=== PATIENT | female | born 1970 | race Native Hawaiian/Other Pacific Islander ===

== ENCOUNTER → 2021-10-21 13:52 | Outpatient (BNVA) | payer OTHER, SELFPAY | PROVIDERS: PCP Internal Medicine; Visit Provider Nurse Practitioner Family | DX: G43.009 Migraine without aura, not intractable, without status migrainosus (principal); G47.00 Insomnia, unspecified | CPT/HCPCS: 99212 ==

== ENCOUNTER → 2022-01-15 12:42 | Outpatient (BNVA) | payer OTHER, SELFPAY | PROVIDERS: PCP Internal Medicine; Visit Provider Nurse Practitioner Family | DX: G43.009 Migraine without aura, not intractable, without status migrainosus (principal); G47.00 Insomnia, unspecified; F11.21 Opioid dependence, in remission | CPT/HCPCS: 99212 ==

== ENCOUNTER 2022-12-10 12:52 | Outpatient (AMB) | payer MEDICARE, SELFPAY ==
[2022-12-10 13:00] VITALS: BP 130/78; PULSE 92; O2SAT 99; BMI 31.6
--- NOTE | 2022-12-10 13:00 | MHC.OFFVIS ---
Intake Vital Signs 12/10/22 13:00 Height 5 ft 8 in Weight 208 lb BMI 31.6 BP 130/78 Blood Pressure Location Rt brachial Pulse 92 Pulse Source Pulse Oximeter Pulse Oximetry (%) 99 Oxygen Delivery Method Room Air Intake Visit Reasons: follow up - LVM Intake Note: Patient presents for follow up. Patient states no issues or concerns. Allergies No Known Allergies [NKA] Allergy (Mild, Verified 12/10/22 13:02) NA Medication List - Last Reconciled 12/10/22 by DARWIN Rea amitriptyline 25 mg PO BEDTIME 30 days aspirin 81 mg PO DAILY celecoxib (Celebrex) 200 mg PO DAILY cetirizine 10 mg PO DAILY cyanocobalamin (vitamin B-12) 100 mcg PO DAILY dicyclomine 20 mg PO QID escitalopram oxalate 5 mg PO DAILY ferrous gluconate 324 mg PO DAILY gabapentin 300 mg PO BID PRN ibuprofen 800 mg PO Q8H PRN ipratropium bromide 2 sprays intranasal montelukast 10 mg PO DAILY rizatriptan 5 - 10 mg (0.5 - 1 x 10 mg) PO Q2H PRN 21 days sennosides (senna) 8.6 - 17.2 mg PO BEDTIME PRN simvastatin 20 mg PO BEDTIME tamoxifen 20 mg PO DAILY topiramate One tab q.a.m. and 2 tabs q.h.s. PO; 30 days trazodone 100 mg PO BEDTIME ubrogepant (Ubrelvy) 50 - 100 mg (0.5 - 1 x 100 mg) PO ONCE PRN 30 days valacyclovir 500 mg PO DAILY zolpidem 10 mg PO BEDTIME PRN HPI HPI Comments History of Present Illness Details 52-yr-old female presents for f/u visit. Pt reports she has been having chronic nasal/sinus congestion r/t nasal polyps. She also reports she has started having areas of small to large reddish/purplish blisters on her legs and elsewhere on her body that come w/o trigger/injury. The lesions may itch, but are not painful. As the blister/raised area resolves, they leave indurated reddish/purple patches. This was recently evaluated in [facility] 11/09/22- bedside US did not show any fluid collection. CBC, CMP- NL. She was referred to [facility]- has appt in Apr. She states she has had recent tx of Prednisone taper and doxycycline (for the nasal polyp s/s and the skin lesions)- but these were not helpful. Pt reports she is rarely having a migraine headache. She has needed to use the Ubrelvy only a few times in the past year, and has found it to be helpful. [facility] Medical History (Updated 12/10/22 @ 14:12 by DARWIN Rea) COVID-19 virus infection Hypercholesteremia Opioid dependence in remission GERD (gastroesophageal reflux disease) Breast CA Asthma Anxiety Surgical History H/O tubal ligation Hx of bilateral breast reduction surgery History of back surgery Family History Mother DM (diabetes mellitus) HTN (hypertension) Hyperlipidemia Social History Alcohol intake: current Alcohol intake frequency: holidays/special occasions only Patient Tobacco Use Status: Former Tobacco user Quit Date: 2016 Review of Systems Const All systems reviewed & are unremarkable except as noted in HPI and below Physical Exam Vital Signs: Last Vital Signs Pulse 92 12/10/22 13:00 BP 130/78 12/10/22 13:00 Pulse Ox 99 12/10/22 13:00 Oxygen Delivery Method Room Air 12/10/22 13:00 BMI result Body Mass Index 31.6 Const General: cooperative and no acute distress Orientation/consciousness: patient oriented x3 HEENT Other: Mild audible sinus congestion Head: Yes normocephalic Resp Effort & Inspection: normal respiratory effort and able to speak in complete sentences Skin Other: Few areas of reddish/purplish raised, firm on BLE. On anterior right stewart- large area 10 x 8 cm area of patchy reddish/purplish raised, firm w/ peripheral erythema andwarmth with 1 large intact reddish blister approx 3 x 2.5 cm. Neuro General: patient oriented x3, gait normal and CN's II-XI intact bilaterally Cognition (Neuro): normal cognition Motor exam (neuro): 5/5 motor strength present throughout Psych Appearance: grossly normal Mental Status: mental status grossly normal Speech and movement: Normal speech and movement present Affect: normal affect Attitude: cooperative Thought process: Normal thought process present Thought content: Normal thought content present Insight: Good insight present (Psych) Judgement: Good judgement present (Psych) Assessment & Plan Assessment & Plan (1) Blood blister: Code(s): T14.8XXA - Other injury of unspecified body region, initial encounter (2) Skin lesion: Code(s): L98.9 - Disorder of the skin and subcutaneous tissue, unspecified (3) Migraine without aura: Code(s): G43.009 - Migraine without aura, not intractable, without status migrainosus (4) Insomnia: Code(s): G47.00 - Insomnia, unspecified Plan For skin lesions: Pt advised to not pop the RLE blister and to seek meidcal care if it does open. I will request wound clinic and dermatology consult- in hopes pt can be seen sooner than Apr. Continue Topiramate 50 mg at AM and 100 mg at HS. Continue Amitriptyline 25 mg at HS. Continue Ambien for sleep. Continue Ubrogepant 50-100mg prn at onset of migraine, may repeat in 2 hrs. May adjunct w/ Rizatriptan. May continue Rizatriptan as needed. Previous acute medications trilas- Sumatriptan- ineffective. Rizatripatn- not full effective Orders: Referrals Wound Care Referral L98.9 - Disorder of the skin and subcutaneous tissue, unspecified, T14.8XXA - Other injury of unspecified body region, initial encounter Dermatology Referral L98.9 - Disorder of the skin and subcutaneous tissue, unspecified, T14.8XXA - Other injury of unspecified body region, initial encounter Medications: Refilled ubrogepant (Ubrelvy) take at onset of migraine, may repeat in 2hrs (may take w/ Rizatriptan) 50 - 100 mg (0.5 - 1 x 100 mg) PO ONCE PRN 16 tabs 6RF migraine headache 30 days rizatriptan at onset of headache, may repeat in 2 hrs (max 2 tabs per day or 4 tabs per week) 5 - 10 mg (0.5 - 1 x 10 mg) PO Q2H PRN 12 tabs 4RF migraine headache 21 days Coding Level of Care Code Est Pt Level 4 (56852) Diagnoses Blood blister T14.8XXA Skin lesion L98.9 Migraine without aura G43.009 Insomnia G47.00
== END 2022-12-10 13:35 | disposition home or self-care (01) ==
PROVIDERS: PCP Internal Medicine; Visit Provider Nurse Practitioner Family
DX: G43.009 Migraine without aura, not intractable, without status migrainosus (principal); G47.00 Insomnia, unspecified; T14.8XXA Other injury of unspecified body region, initial encounter; L98.9 Disorder of the skin and subcutaneous tissue, unspecified
CPT/HCPCS: 99214

== ENCOUNTER → 2022-12-10 12:52 | Outpatient (BNVA) | payer MEDICARE, SELFPAY | PROVIDERS: PCP Internal Medicine; Visit Provider Nurse Practitioner Family | DX: L98.9 Disorder of the skin and subcutaneous tissue, unspecified (principal); G43.009 Migraine without aura, not intractable, without status migrainosus; G47.00 Insomnia, unspecified; T14.8XXA Other injury of unspecified body region, initial encounter | CPT/HCPCS: 99212 ==

== ENCOUNTER 2024-03-08 10:12 | Outpatient (AMB) | payer OTHER, SELFPAY ==
--- NOTE | 2024-03-08 10:13 | MHC.OFFVIS ---
Vital Signs 03/08/24 10:15 Height 5 ft 7 in Weight 239 lb BMI 37.4 Intake Visit Reasons: Follow Up Intake Note: Patient presents for follow up Allergies No Known Allergies [NKA] Allergy (Mild, Verified 03/08/24 10:16) NA Medication List - Last Reconciled 03/08/24 by DARWIN Rea amitriptyline 25 mg PO BEDTIME 30 days aspirin 81 mg PO DAILY celecoxib (Celebrex) 200 mg PO DAILY cetirizine 10 mg PO DAILY cyanocobalamin (vitamin B-12) 100 mcg PO DAILY dicyclomine 20 mg PO QID escitalopram oxalate 5 mg PO DAILY ferrous gluconate 324 mg PO DAILY gabapentin 300 mg PO BID PRN ibuprofen 800 mg PO Q8H PRN 30 days ipratropium bromide 2 sprays intranasal montelukast 10 mg PO DAILY rizatriptan 5 - 10 mg (0.5 - 1 x 10 mg) PO Q2H PRN 21 days sennosides (senna) 8.6 - 17.2 mg PO BEDTIME PRN simvastatin 20 mg PO BEDTIME tamoxifen 20 mg PO DAILY topiramate One tab q.a.m. and 2 tabs q.h.s. 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 She is f/b Dr Guillory at [facility]. Since, she has completed chemotherapy (did not require stem cell transplant or radiation tx). During her chemotherapy, patient did have ?ifosfamide mediated cardiotoxicity with SMILE, decreased ejection fraction- thought to be d/t Ifosfamide. Was stasrted on carvedilol, losartan for chemo related cardiotoxicity with drop in her EF.? Her tamoxifen was held during her chemotherapy treatments, however she has resumed tamoxifen again. She had mid January 2024 [facility] admission for abdominal pain, which was initially thought to be pancreatitis, as Abd CT showed mildly edematous pancreatic head without any surrounding peripancreatic fluid collection, abscess or inflammatory fat stranding. Prominent common bile duct with distal tapering. Hepatic steatosis. However lab work was not consistent with pancreatitis. Patient was discharged home, with encouragement to follow up with PCP, optimize a healthy low-fat diet, and encouraged to decrease alcohol consumption. She has been having decreased energy throughout her chemotherapy treatment, and this does persist some. Most recent PET scans do not show evidence of cancer- she will continue to be followed closely w/ skin checks, blood work, PeTscans. She is scheduled for a follow-up chest CT to monitor a left upper lobe pulmonary nodule. While undergoing chemotherapy, she has had a weight gain and then started having ?tendinopathy of the left shoulder?and christiano knee pain. She recently had bilateral knee injections, which was very helpful. She is awaiting left shoulder injection. Pt reports she is having an occasional migraine headache- sometimes can go months between attacks. Last week, she had a week of waking up with a migraine- this happens about once a year. She states the Ubrelvy is not helpful. Finds Ibuprofen 800mg is more effective. She has needed to use the Ubrelvy only a few times in the past year, and has found it to be helpful. Migraine characteristics: starts as either right or left temporal then becomes bilateral temporal pounding/hammering pain a/w photophobia, phonophobia, nausea, anorexia, orthostatic lightheadedness, brain fog, activity intolerance. Typical duration w/o Tx- all day. PFSH Medical History (Updated 03/08/24 @ 12:08 by DARWIN Rea) COVID-19 virus infection Hypercholesteremia Opioid dependence in remission GERD (gastroesophageal reflux disease) Breast CA Asthma Anxiety Surgical History (Updated 03/08/24 @ 10:18 by CHALO Franco) Hx laparoscopic cholecystectomy H/O tubal ligation Hx of bilateral breast reduction surgery History of back surgery Family History Mother DM (diabetes mellitus) HTN (hypertension) Hyperlipidemia Social History Alcohol intake: current Alcohol intake frequency: holidays/special occasions only Patient Tobacco Use Status: Former Tobacco user Physical Exam Vital Signs: BMI result Body Mass Index 37.4 Const General: cooperative and no acute distress Orientation/consciousness: patient oriented x3 HEENT Head: Yes normocephalic Resp Effort & Inspection: normal respiratory effort and able to speak in complete sentences Neuro General: patient oriented x3, gait normal and CN's II-XI intact bilaterally Cognition (Neuro): normal cognition Motor exam (neuro): 5/5 motor strength present throughout Psych Appearance: grossly normal Mental Status: mental status grossly normal Speech and movement: Normal speech and movement present Affect: normal affect Attitude: cooperative Thought process: Normal thought process present Thought content: Normal thought content present Insight: Good insight present (Psych) Judgement: Good judgement present (Psych) Assessment & Plan Assessment & Plan (1) Migraine without aura: Code(s): G43.009 - Migraine without aura, not intractable, without status migrainosus Category: Medical (2) Insomnia: Code(s): G47.00 - Insomnia, unspecified Category: Medical Plan For migraine and sleep: Continue Topiramate 50 mg at AM and 100 mg at HS. Continue Amitriptyline 25 mg at HS. Continue Ambien 10 mg q.h.s. for sleep- managed by PCP. Continue trazodone 100 mg q.h.s.. Hold Ubrogepant 50-100mg prn- patient states ineffective May continue ibuprofen 800 mg p.o. t.i.d. p.r.n. May continue Rizatriptan as needed. Previous acute medications trials- Sumatriptan- ineffective. Rizatripatn- not full effective. Ubrelvy-ineffective. Medications: New ibuprofen 800 mg PO Q8H 30 days PRN 180 tabs 1RF pain Coding Level of Care Code Est Pt Level 4 (43626) Diagnoses Migraine without aura G43.009 Insomnia G47.00
[2024-03-08 10:15] VITALS: BMI 37.4
--- OUTSIDE RECORDS SUMMARY | 2024-03-08 10:15 | XMS_ITS | Continuity of Care Document ---
Author Organization [facility] Address [address] [place] [address]- Care Team Providers Care Hybrid Car Mechanic Name Role Phone Junior BERGERON, Justin Olivier Primary Care Physician [phone] [place] [facility] [place]/18[place]24 - 02/17/24 [facility] [address] [place], [place] [address] Encounter Type: Triage Allergies, Adverse Reactions, Alerts Substance Criticality Severity Reaction Reaction Severity Status Other Environmental Allergy seasonal allergies Active Immunizations Given and Recorded Vaccine Date Status Refusal Reason influenza virus vaccine, inactivated 01/29/23 Give n influenza virus vaccine, inactivated 02/10/22 Give n tetanus-diphtheria toxoids (Td) 06/22/22 Given tetanus-diphtheria toxoids (Td) 05/14/97 Given pneumococcal 23-valent vaccine 10/07/09 Given Influenza Vaccine (oldterm) 11/14/98 Given Problem List Condition Confirmation Course Effective Dates Status H ealth Status Informant Acute lower UTI Confirmed Active Asthma 1 Confirmed Active Bipolar disorder Confirmed Active Body mass index 30+ - obesity Confirmed Active Breast cyst, solitary, right at 12:30, 5 CFN oil cyst Confirmed 09/05/10 Active Breast mass, right breast Confirmed 08/15/10 Active CHRIS II (cervical intraepithelial neoplasia II) 2 Confirmed 04/24/08 Active Degeneration of lumbar intervertebral disc Confirmed Active Depression Confirmed Active Dyslipidemia Confirmed Active GERD (gastroesophageal reflux disease) Confirmed Active Heart murmur Confirmed Active History of herpes genitalis Confirmed Active Ductal carcinoma in situ (DCIS) of left breast Confirmed 03/2021 Active Knee pain Confirmed Active Breast cancer Confirmed Active Migraine Confirmed Active Admission for chemotherapy Confirmed Active Severe obesity (BMI 35.0-39.9) with comorbidity Confirmed Active Polysubstance use disorder Confirmed Active NK/T-cell lymphoma Confirmed Active Tobacco user Confirmed Active 1mild intermittent 2pap LSIL, CHRIS II on colpo biopsy, cone biopsy 06/22 Social History Social History Type Response Smoking Status 10 or more cigarette s (1/2 pack or more)/day in last 30 days; Interested in cessation: No; Patient wants NRT during admission No entered on: 10/19/23 Sex Sex Representation Female (finding) Patient Care team information Care Team Personnel Name: Pilar Donovan RN Position: [facility] RN Member Role: Primary Care Nurse Name: Lita Wilson Position: [facility] Outreach Member Role: Lifetime Consulting Physician Address: [address] [place] [address] [place] - Telecom: Name: Keena Cruz RN Position: [facility] RN Member Role: Primary Care Nurse Name: Evelia Joya RN Position: [facility] RN Member Role: Primary Care Nurse Name: Catalina Fong RN Position: [facility] RN Member Role: Primary Care Nurse Name: Zoe Yepez RN Position: [facility] RN Member Role: Primary Care Nurse Name: Efren Boateng RN Position: [facility] RN Member Role: Primary Care Nurse Name: Vanessa Ladd RN Position: [facility] Onco RN Member Role: Primary Care Nurse Name: Justin Pacheco MD Position: [facility] Physician - Primary Care Member Role: PCP Address: [address] [place] [address], [address] Primary Care [place] [address]- Telecom: Name: Tommy Segovia RN Position: [facility] RN Member Role: Primary Care Nurse Name: Rosa Salazar RN Position: [facility] RN Member Role: Primary Care Nurse Name: Renita Alberts RN Position: [facility] Onco RN Member Role: Primary Care Nurse Name: Nafisa Meyer RN Position: [facility] Onco RN Member Role: Primary Care Nurse Name: Digna Aguilar RN Position: [facility] Onco RN Member Role: Primary Care Nurse Name: Lazara Pineda Position: [facility] Outreach Member Role: Lifetime Consulting Physician Name: Ashli Pinto RN Position: [facility] Onco RN Member Role: Primary Care Nurse Name: Rufus Lugo RN Position: [facility] RN Member Role: Primary Care Nurse Name: Brian Rodriguez RN Position: [facility] RN Member Role: Primary Care Nurse Name: Jenn Upton RN Position: [facility] RN Member Role: Primary Care Nurse Name: Jasmin Morales RN Position: [facility] RN Member Role: Primary Care Nurse Name: Katelin Belle RN Position: [facility] RN Member Role: Primary Care Nurse Name: Annie Vazquez LPN Position: [facility] RN Member Role: Primary Care Nurse Name: Daysi Bull RN, I Position: [facility] RN Member Role: Primary Care Nurse Care Team Related Persons Name: PERNELL GARVEY Name: MARC LUND Name: KILLIAN GRACIA Name: OMKAR TOSCANO Insurance Providers Guarantor name: [facility] Information #: 1 Payer: [facility] [employer] [employer] Member Number: NA Policy Number: NA Group Number: NA
--- OUTSIDE RECORDS SUMMARY | 2024-03-08 10:15 | XMS_ITS ---
Author Organization [facility] Address [address] [place] [address] Care Team Providers Care Food Equipment Service Technician Name Role Phone ARANAMALLYJEFF Primary Care Provider YOUNG MORALES Unavailable [phone] Giovanni, Kala Unavailable [phone] REASON FOR VISIT x-ray result on disc Encounters Encounter Location Date Provider Diagnosis [address] [facility] [address] [place] [address] 02/09/2024 Kala Davila PLAN OF TREATMENT Next Appt Details Provider Name:Kala Davila, 0 04/13/2024 02:00:00 PM, [address], [address], [place], [address], Progress Notes * MICHELE HERNANDEZ TDOB:1969 (53 yo F)Acc No.[id number]:02/09/2024 Patient:??MICHELE HERNANDEZ :1970?Age:53 Y?Sex:Fe male Address:[address] [facility], [address], [place] [address] * true * Date:??
--- OUTSIDE RECORDS SUMMARY | 2024-03-08 10:15 | XMS_ITS | Continuity of Care Document ---
Author Organization [facility] Address [address] [place] [address]- Care Team Providers Care Aquatic Life Laborer Name Role Phone Justin Pacheco MD Primary Care Physician Encounter [facility] Date(s): 11/30/23 - 02/09/24 [facility] [address] [place], [place] [address] Discharge Disposition: A-D/C Home Attending Physician: Daya Guillory MD Admitting Physician: Daya Guillory MD Referring Physician: Justin Pacheco MD Encounter Type: Disch Recurring OP Allergies, Adverse Reactions, Alerts Substance Criticality Severity [...] II on colpo biopsy, cone biopsy 06/22 Vital Signs Most recent to oldest [Reference Range]: 1 2 3 Height 170 cm (02/08/24 1:19 PM) 171 cm (01/19/24 2:12 PM) 171 cm (01/12/24 3:00 PM) Weight 106.0 kg (02/08/24: PM) 104.1 kg (01/12/24 3:00 PM) Oxygen Saturation [94-100 %] 99 % (02/08/24: PM) 98 % (01/12/24 3:00 PM) 99 % (01/05/24 10:59 AM) Pulse Rate [55-90 bpm] 98 bpm *H* (02/08/24: PM) 85 bpm (01/12/24 3:00 PM) 86 bpm (01/05/24 10:59 AM) Body Mass Index [18.5-24.99 kg/m2] 36.68 kg/m2 *>HHI* (02/08/24 1: PM) 35.6 kg/m2 *>HHI* (01/12/24 3:00 PM) Blood Pressure [90-138/55-84 mm Hg] 109/68mm Hg (02/08/24: PM) 106/75mm Hg (01/12/24 3:00 PM) 106/63mm Hg (01/05/24 10:59 AM) Temperature [96.8-100.4 DegF] 97.6 DegF (02/08/24: PM) 98.6 DegF (01/12/24 3:00 PM) 97.8 DegF (01/05/24 10:59 AM) Mode of Delivery (Oxygen) Room air (02/08/24 1:19 PM) Room air (01/12/24 3:00 PM) Room air (01/05/24 10:59 AM) Blood pressure sites Arm, right (02/08/24 1:19 PM) Arm, right (01/12/24 3:00 PM) Arm, right (01/05/24 10:59 AM) Temperature Route Oral (02/08/24 1:19 PM) Oral (01/19/24 2:12 PM) Oral (01/12/24 3:00 PM) Dry Weight 106.0 kg (02/08/24 1:19 PM) 104.1 kg (01/12/24 3:00 PM) Weight Obtained Via Standing scale (02/08/24 1:19 PM) Standing scale (01/12/24 3:00 PM) Standing scale (12/02/23 10:30 AM) Dry Weight Obtained Via Standing scale (02/08/24 1:19 PM) Standing scale (01/12/24 3:00 PM) Standing scale (12/02/23 10:30 AM) Social History Social History Type Response Smoking Status 10 or more cigarette s (1/2 pack or more)/day in last 30 days; Interested in cessation: No; Patient wants NRT during admission No entered on: 10/19/23 Sex Sex Representation Female (finding) Patient Care team information Care Team Personnel Name: Pilar Donovan RN Position: [facility] RN Member Role: Primary Care Nurse Name: Lita Wilson Position: [facility] Outreach Member Role: Lifetime Consulting Physician Address: [address] [place] [address] Personal Primary Care & Weight Managment [address] [place], [place] [address] Telecom: Name: Keena Cruz RN Position: [facility] RN Member Role: Primary Care Nurse Name: Evelia Joya RN Position: [facility] RN Member Role: Primary Care Nurse Name: Catalina Fong RN Position: [facility] RN Member Role: Primary Care Nurse Name: Zoe Yepez RN Position: [facility] RN Member Role: Primary Care Nurse Name: Efren Boateng RN Position: [facility] RN Member Role: Primary Care Nurse Name: Vanessa Ladd RN Position: [facility] Onco RN Member Role: Primary Care Nurse Name: Justin Pacheco MD Position: [facility] Physician - Primary Care Member Role: PCP Address: [address] [place] [address], [address] Primary [place] [address]- Telecom: Name: Tommy Segovia RN Position: [facility] RN Member Role: Primary Care Nurse Name: Rosa Salazar RN Position: [facility] RN Member Role: Primary Care Nurse Name: Renita Alberts RN Position: [facility] Onco RN Member Role: Primary Care Nurse Name: Nafisa Meyer RN Position: [facility] Onco RN Member Role: Primary Care Nurse Name: Digna Aguilar RN Position: [facility] Onco RN Member Role: Primary Care Nurse Name: Lazara Pineda Position: [facility] Outreach Member Role: Lifetime Consulting Physician Name: Ashli Pinto RN Position: [facility] Onco RN Member Role: Primary Care Nurse Name: Rufus Lugo RN Position: [facility] RN Member Role: Primary Care Nurse Name: Brian Rodriguez RN Position: [facility] RN Member Role: Primary Care Nurse Name: Jenn Upton RN Position: [facility] RN Member Role: Primary Care Nurse Name: Jasmin Mroales RN Position: [facility] RN Member Role: Primary Care Nurse Name: Katelin Belle RN Position: [facility] RN Member Role: Primary Care Nurse Name: Annie Vazquez LPN Position: [facility] RN Member Role: Primary Care Nurse Name: Daysi Bull RN, I Position: [facility] RN Member Role: Primary Care Nurse Care Team Related Persons Name: PERNELL GARVEY Name: MARC LUND Name: KILLIAN GRACIA Name: OMKAR TOSCANO Insurance Providers Guarantor name: [facility] Health Plan Information #: 1 Payer: [employer] Member Number: [id number] Policy Number: NA Group Number: [facility] Health Plan Information #: 2 Payer: [employer] Member Number: [id number] Policy Number: NA Group Number: NA
--- OUTSIDE RECORDS SUMMARY | 2024-03-08 10:15 | XMS_ITS | Continuity of Care Document ---
Author Organization [facility] Address [address] [place] [address]- Care Team Providers Care Filter Machine Operator Name Role Phone Junior BERGERON, Justin Olivier Primary Care Physician [phone] Encounter [facility] Date(s): 01/18/24 - 02/17/24 [facility] [address], [place] [address] Encounter Type: Triage Allergies, Adverse Reactions, Alerts [...] Team Personnel Name: Pilar Donovan RN Position: [facility] RN Member Role: Primary Care Nurse Name: Lita Wilson Position: [facility] Outreach Member Role: Lifetime Consulting Physician Address: [address] [place] [address] [place] - Telecom: Name: Keena Cruz RN Position: [facility] RN Member Role: Primary Care Nurse Name: Evelia Joya RN Position: [facility] RN Member Role: Primary Care Nurse Name: Catalina Fong RN Position: [facility] RN Member Role: Primary Care Nurse Name: Zoe Yepez RN Position: [facility] RN Member Role: Primary Care Nurse Name: Efren Boateng RN Position: [facility] RN Member Role: Primary Care Nurse Name: Vanessa Ladd RN Position: [facility] Onco RN Member Role: Primary Care Nurse Name: Justin Pacheco MD Position: [facility] Physician - Primary Care Member Role: PCP Address: [address] [place] [address], [address] Primary [place] [address]- Telecom: Name: Tommy Segovia RN Position: [facility] RN Member Role: Primary Care Nurse Name: Rosa Salazar RN Position: [facility] RN Member Role: Primary Care Nurse Name: Renita Alberts RN Position: [facility] Onco RN Member Role: Primary Care Nurse Name: Nafisa Meyer RN Position: [facility] Onco RN Member Role: Primary Care Nurse Name: Digna Aguilar RN Position: [facility] Onco RN Member Role: Primary Care Nurse Name: Lazara Pindea Position: [facility] Outreach Member Role: Lifetime Consulting Physician Name: Ashli Pinto RN Position: [facility] Onco RN Member Role: Primary Care Nurse Name: Rufus Lugo RN Position: [facility] RN Member Role: Primary Care Nurse Name: Brian Rodriguez RN Position: [facility] RN Member Role: Primary Care Nurse Name: Jenn Upton RN Position: [facility] RN Member Role: Primary Care Nurse Name: Jasmin Morales RN Position: [facility] RN Member Role: Primary Care Nurse Name: Katelin Belle RN Position: [facility] RN Member Role: Primary Care Nurse Name: Annie Vazquez LPN Position: [facility] RN Member Role: Primary Care Nurse Name: Daysi Bull RN, I Position: [facility] RN Member Role: Primary Care Nurse Care Team Related Persons Name: PERNELL GARVEY Name: MARC LUND Name: KILLIAN GRACIA Name: OMKAR TOSCANO Insurance Providers Guarantor name: [facility] Information #: 1 Payer: [facility] C[employer]/ONE CARE Member Number: NA Policy Number: NA Group Number: NA
--- OUTSIDE RECORDS SUMMARY | 2024-03-08 10:15 | XMS_ITS ---
Author Organization [facility] Address [address] [place] [address] Care Team Providers Care Allergy Nurse Name Role Phone PACHECO, MALLYJEFF Primary Care Provider YOUNG MORALES Unavailable [phone] Kala Davila Unavailable [phone] REASON FOR REFERRAL Reason NEOS; left shoulder pain Diagnosis 1 Left shoulder pain, unspecified chronicity (M25.512) Referral Organization [facility] 119 Referring Provider First Name Kala [facility] Referring Provider Speciality Internal M edicine Referred Provider Specialty Orthopedic S urgery General Notes [address] Tisha [address] [facility] , (p) [phone], (f) [phone] Clinical Notes Bev Alford 02:34:48 PM > referral faxed Referral Priority Routine REASON FOR VISIT Pt here for follow up. Pt has no concerns. MEDICATIONS Medication SIG (Take, Route, Frequency, Duration) Notes Start Date End Date Status Ambien 10 MG 1 tablet at bedtime as needed Orally Once a day Active Gabapentin 300 MG TAKE 1 CAPSULE BY MOUTH THREE TIMES DAILY for 90 Active Dicyclomine HCl 20 mg TAKE ONE TABLET BY MOUTH FOUR TIMES DAILY @ [id number] for 90 Active predniSONE 20 MG 2 tablets Orally Onc e a day for 5 days 02/04/2024 Active Escitalopram Oxalate 10 MG TAKE 1 TABLET BY MOUTH EVERY DAY for 90 Unknown Zolpidem Tartrate 10 MG TAKE 1 TABLET BY MOUTH EVERY NIGHT AT BEDTIME NEEDED for 90 12/21/2023 Active Vitamin B12 100 MCG TAKE 1 TABLET BY BRYSON TH EVERY DAY for 90 Active Lactulose 10 GM/15ML 15 ml Orally TID pr n constipation for 10 days 02/13/2022 Active Albuterol Sulfate HFA 108 (90 Base) MCG/ACT 1 puff as needed Inhalation every 4 hrs for 30 days Active Polyethylene Glycol 3350 17 GM/SCOOP MIX 17GR(1 CAPFUL) INTO 8OZ OF WATER AND DRINK TWICE DAILY for 180 Active Ferrous Gluconate 324 (38 Fe) MG TAKE 1 TABLET BY MOUTH TWICE DAILY for 90 Active Topiramate 50 MG 1 tablet Orally Twic e a day for 30 day(s) Active Senna 8.6 MG TAKE 1 TO 2 TABLETS BY MOUTH EVERY NIGHT AT BEDTIME NEEDED for 45 Active Famotidine 20 MG TAKE 1 TABLET BY BRYSON TH TWICE DAILY for 90 Active traZODone HCl 100 MG TAKE 1 TABLET BY [facility] AT BEDTIME for 90 Active Tamoxifen Citrate 20 MG 1 tablet Orally Once a day Active Amitriptyline HCl 25 MG 1 tablet Orally Once a day for 30 day(s) Active Aspirin 81 MG 1 tablet Orally Once a day Active Ferrous Sulfate Acti ve Valtrex 500 MG 1 tablet Orally Once a day Active Sucralfate 1 GM/10ML 10 mL 1 hour before meals and at bedtime on an empty stomach Orally Four times a day Active Atorvastatin Calcium 80 MG 1 tablet Orally Once a day cardiology Active Carvedilol 3.125 MG 1 tablet with food Orally Twice a day cardiology Active Fluconazole 200 MG 1 tablet Orally Active Losartan Potassium 25 MG 1 tablet Orally Once a day cardiology Active Omeprazole 20 MG 1 capsule 30 minutes before morning meal Orally Once a day Active SOCIAL HISTORY Tobacco Use: Social History Observation Description Date Details (start date - stop date) Former Smoker NA - NA Sex Assigned At : Social History Observation Description Sex Assigned At Unknown Tobacco Use/Smoking Question Answer Notes Are you a former smoker Section Notes: Tob: Smoking 3 cigarettes per day (recently started in August 2022) started at the age of 15; quit for 6 years ETOH: Has stopped since the last visit Drugs: Cocacine ( has contiuned with soberity x7 weeks) VITAL SIGNS Heart Rate 95 /min 2024 Blood pressure systolic 116 mm Hg 03/02/20 24 Blood pressure diastolic 82 mm Hg 024 Weight 238 lbs 2024 BMI 38.41 kg/m2 2024 Height 66 in 2024 Oximetry 98 % 2024 Encounters Encounter Location Date Provider Diagnosis [address] [address] 2024 Kala Davila Anxiety disorder, unspecified F41.9 ; Lymphoma, unspecified body region, unspecified lymphoma type C85.90 ; Ductal carcinoma in situ (DCIS) of left breast D05.12 ; NK/T-cell lymphoma, 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 Bone marrow biopsy at [facility] has been put on hold. She was recently treated with antibiotics by Dr. Guillory for possible left lung infection and will need follow-up CAT scan which is scheduled Mar 18. She has follow up with Dr. Guillory next week. #Anxiety and depression. Currently on Lexapro. Mood stable. #DCIS left breast. Status post resection 2021. Currently on tamoxifen. Has hot flashes. #Polysubstance abuse. Reports she has not used cocaine in several months and stopped alcohol since her hospitalization. Discussed at length and strongly encouraged to remain off of alcohol. #Left knee pain. She saw ortho yesterday and had cortisone injection with much improvement of symptoms. #Left shoulder pain. Requesting updated ortho referral for consideration of left shoulder injection. fabio Case discussed with collaborating physician Charline Pacheco who reviewed the assessment and plan. Chart, medications, labs, vital signs reviewed. Dictation was accomplished with the use of [employer] voice recognition software, prone to medical misidentifications and grammatical errors. This is unintentional and the practitioner does try to identify and correct these, but some could still be present. Please do not hesitate to contact practitioner for clarification. All questions answered to patients satisfaction. Patient verbalized understanding of diagnosis and treatments explained. To call sooner prior to next visit it any questions/concerns arise. 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 Bone marrow biopsy at [facility] has been put on hold. She was recently treated with antibiotics by Dr. Guillory for possible left lung infection and will need follow-up CAT scan which is scheduled Mar 18. She has follow up with Dr. Guillory next week. #Anxiety and depression. Currently on Lexapro. Mood stable. #DCIS left breast. Status post resection 2021. Currently on tamoxifen. Has hot flashes. #Polysubstance abuse. Reports she has not used cocaine in several months and stopped alcohol since her hospitalization. Discussed at length and strongly encouraged to remain off of alcohol. #Left knee pain. She saw ortho yesterday and had cortisone injection with much improvement of symptoms. #Left shoulder pain. Requesting updated ortho referral for consideration of left shoulder injection. oulder Case discussed with collaborating physician Charline Pacheco who reviewed the assessment and plan. Chart, medications, labs, vital signs reviewed. Dictation was accomplished with the use of [employer] voice recognition software, prone to medical misidentifications and grammatical errors. This is unintentional and the practitioner does try to identify and correct these, but some could still be present. Please do not hesitate to contact practitioner for clarification. All questions answered to patients satisfaction. Patient verbalized understanding of diagnosis and treatments explained. To call sooner prior to next visit it any questions/concerns arise. 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 Bone marrow biopsy at [facility] has been put on hold. She was recently treated with antibiotics by Dr. Guillory for possible left lung infection and will need follow-up CAT scan which is scheduled Mar 18. She has follow up with Dr. Guillory next week. #Anxiety and depression. Currently on Lexapro. Mood stable. #DCIS left breast. Status post resection 2021. Currently on tamoxifen. Has hot flashes. #Polysubstance abuse. Reports she has not used cocaine in several months and stopped alcohol since her hospitalization. Discussed at length and strongly encouraged to remain off of alcohol. #Left knee pain. She saw ortho yesterday and had cortisone injection with much improvement of symptoms. #Left shoulder pain. Requesting updated ortho referral for consideration of left shoulder injection. chuckyer Case discussed with collaborating physician Charline Pacheco who reviewed the assessment and plan. Chart, medications, labs, vital signs reviewed. Dictation was accomplished with the use of L[employer] voice recognition software, prone to medical misidentifications and grammatical errors. This is unintentional and the practitioner does try to identify and correct these, but some could still be present. Please do not hesitate to contact practitioner for clarification. All questions answered to patients satisfaction. Patient verbalized understanding of diagnosis and treatments explained. To call sooner prior to next visit it any questions/concerns arise. 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 Bone marrow biopsy at [facility] has been put on hold. She was recently treated with antibiotics by Dr. Guillory for possible left lung infection and will need follow-up CAT scan which is scheduled Mar 18. She has follow up with Dr. Guillory next week. #Anxiety and depression. Currently on Lexapro. Mood stable. #DCIS left breast. Status post resection 2021. Currently on tamoxifen. Has hot flashes. #Polysubstance abuse. Reports she has not used cocaine in several months and stopped alcohol since her hospitalization. Discussed at length and strongly encouraged to remain off of alcohol. #Left knee pain. She saw ortho yesterday and had cortisone injection with much improvement of symptoms. #Left shoulder pain. Requesting updated ortho referral for consideration of left shoulder injection. fabio Case discussed with collaborating physician Charline Pacheco who reviewed the assessment and plan. Chart, medications, labs, vital signs reviewed. Dictation was accomplished with the use of L[employer] voice recognition software, prone to medical misidentifications and grammatical errors. This is unintentional and the practitioner does try to identify and correct these, but some could still be present. Please do not hesitate to contact practitioner for clarification. All questions answered to patients satisfaction. Patient verbalized understanding of diagnosis and treatments explained. To call sooner prior to next visit it any questions/concerns arise. 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 Bone marrow biopsy at [facility] has been put on hold. She was recently treated with antibiotics by Dr. Guillory for possible left lung infection and will need follow-up CAT scan which is scheduled Mar 18. She has follow up with Dr. Guillory next week. #Anxiety and depression. Currently on Lexapro. Mood stable. #DCIS left breast. Status post resection 2021. Currently on tamoxifen. Has hot flashes. #Polysubstance abuse. Reports she has not used cocaine in several months and stopped alcohol since her hospitalization. Discussed at length and strongly encouraged to remain off of alcohol. #Left knee pain. She saw ortho yesterday and had cortisone injection with much improvement of symptoms. #Left shoulder pain. Requesting updated ortho referral for consideration of left shoulder injection. fabio Case discussed with collaborating physician Charline Pacheco who reviewed the assessment and plan. Chart, medications, labs, vital signs reviewed. Dictation was accomplished with the use of Lites[employer] voice recognition software, prone to medical misidentifications and grammatical errors. This is unintentional and the practitioner does try to identify and correct these, but some could still be present. Please do not hesitate to contact practitioner for clarification. All questions answered to patients satisfaction. Patient verbalized understanding of diagnosis and treatments explained. To call sooner prior to next visit it any questions/concerns arise. 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 Bone marrow biopsy at [facility] has been put on hold. She was recently treated with antibiotics by Dr. Guillory for possible left lung infection and will need follow-up CAT scan which is scheduled Mar 18. She has follow up with Dr. Guillory next week. #Anxiety and depression. Currently on Lexapro. Mood stable. #DCIS left breast. Status post resection 2021. Currently on tamoxifen. Has hot flashes. #Polysubstance abuse. Reports she has not used cocaine in several months and stopped alcohol since her hospitalization. Discussed at length and strongly encouraged to remain off of alcohol. #Left knee pain. She saw ortho yesterday and had cortisone injection with much improvement of symptoms. #Left shoulder pain. Requesting updated ortho referral for consideration of left shoulder injection. ouemmaer Case discussed with collaborating physician Charline Pacheco who reviewed the assessment and plan. Chart, medications, labs, vital signs reviewed. Dictation was accomplished with the use of [employer] voice recognition software, prone to medical misidentifications and grammatical errors. This is unintentional and the practitioner does try to identify and correct these, but some could still be present. Please do not hesitate to contact practitioner for clarification. All questions answered to patients satisfaction. Patient verbalized understanding of diagnosis and treatments explained. To call sooner prior to next visit it any questions/concerns arise. 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 Bone marrow biopsy at [facility] has been put on hold. She was recently treated with antibiotics by Dr. Guillory for possible left lung infection and will need follow-up CAT scan which is scheduled Mar 18. She has follow up with Dr. Guillory next week. #Anxiety and depression. Currently on Lexapro. Mood stable. #DCIS left breast. Status post resection 2021. Currently on tamoxifen. Has hot flashes. #Polysubstance abuse. Reports she has not used cocaine in several months and stopped alcohol since her hospitalization. Discussed at length and strongly encouraged to remain off of alcohol. #Left knee pain. She saw ortho yesterday and had cortisone injection with much improvement of symptoms. #Left shoulder pain. Requesting updated ortho referral for consideration of left shoulder injection. oulder Case discussed with collaborating physician Charline Pacheco who reviewed the assessment and plan. Chart, medications, labs, vital signs reviewed. Dictation was accomplished with the use of L[employer]ite voice recognition software, prone to medical misidentifications and grammatical errors. This is unintentional and the practitioner does try to identify and correct these, but some could still be present. Please do not hesitate to contact practitioner for clarification. All questions answered to patients satisfaction. Patient verbalized understanding of diagnosis and treatments explained. To call sooner prior to next visit it any questions/concerns arise. 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 Bone marrow biopsy at [facility] has been put on hold. She was recently treated with antibiotics by Dr. Guillory for possible left lung infection and will need follow-up CAT scan which is scheduled Mar 18. She has follow up with Dr. Guillory next week. #Anxiety and depression. Currently on Lexapro. Mood stable. #DCIS left breast. Status post resection 2021. Currently on tamoxifen. Has hot flashes. #Polysubstance abuse. Reports she has not used cocaine in several months and stopped alcohol since her hospitalization. Discussed at length and strongly encouraged to remain off of alcohol. #Left knee pain. She saw ortho yesterday and had cortisone injection with much improvement of symptoms. #Left shoulder pain. Requesting updated ortho referral for consideration of left shoulder injection. oulder Case discussed with collaborating physician Charline Pacheco who reviewed the assessment and plan. Chart, medications, labs, vital signs reviewed. Dictation was accomplished with the use of [employer] voice recognition software, prone to medical misidentifications and grammatical errors. This is unintentional and the practitioner does try to identify and correct these, but some could still be present. Please do not hesitate to contact practitioner for clarification. All questions answered to patients satisfaction. Patient verbalized understanding of diagnosis and treatments explained. To call sooner prior to next visit it any questions/concerns arise. PLAN OF TREATMENT Referrals Referral Date Details [facility]OS; left shoulder pain Next Appt Details Follow Up: 6 Weeks, Reason: MM Provider Name:Kala Giovanni, 0 04/13/2024 02:00:00 PM, [address] [place] [address], [phone], Progress Notes * YNES ALFORD TDOB:1969 (54 yo F)Acc No.[id number]:2024 Progress Notes Patient:??YNES ALFORD T Provider:??Kala Davila PA-C :1970?Age:54 Y?Sex:Fe male Date:2024 Address:[address] [place], [place] [id number] Pcp:BETH PACHECO Subjective: * Chief Complaints: * ?1. Pt here for follow up. Pt has no concerns.. * HPI: ?Constitutional:? Ynes is a 54-year-old female with a past medical history of anxiety, hyperlipidemia, hypertension, asthma, obesity, history of breast cancer presents today for follow up. She has lymphoma and has been doing chemotherapy. She did recently see the orthopedist yesterday and had knee injections and feels much better. She has had left shoulder discomfort as well and is requesting a referral for injection of her left shoulder as well. Chemotherapy has been on hold. She is scheduled for follow-up chest CT on March 18 reports able to be doing chest and abdomen. She does have a follow-up with Dr. Prescott next week however this may get rescheduled until after she has her repeat imaging. Given recent illness and treatment for pneumonia her visits with [facility] have been put on hold. ?She did have an abnormal chest CT and was recently treated with antibiotics. She does note that she does cough a lot at home however and is wondering if her carpeting could be contributing. She is requesting a letter to give to her landlord to consider removing the car carpeting. * ROS:?All Other Systems:?Review of Systems (ROS)??All others negative except those mentioned in HPI.? * Medical History:??Asthma, un specified asthma severity, unspecified whether complicated, unspecified whether persistent, Depression, unspecified, Bipolar depression, Hyperlipidemia, unspecified, Ductal carcinoma in situ (DCIS) of breast, unspecified laterality, Chronic constipation, Spinal stenosis, lumbosacral region, Migraine, unspecified, not intractable, without status migrainosus, Insomnia, unspecified, History of breast cancer, Spinal stenosis, lumbosacral region, Cocaine abuse, Lymphoma, unspecified body region, unspecified lymphoma type. * Surgical History:??breast au gmentation , tubal ligation , back surgery , Lumpectomy 2021 . * Hospitalization/Major Diagno stic Procedure:??Epigatric abd pain/intractable pain 01/2022. * Family History:??Father: ali ve.??Mother: , diagnosed with Unspecified heart disease, Unspecified essential hypertension.?? DAD: unknown history MOM: at the age of 82 2021 dementia, HTN, and heart disease. * Social History:?Tobacco Use:??Tobacco Use/Smoking??Are you a??former smoker.?Tob: Smoking 3 cigarettes per day (recently started in August 2022) started at the age of 15; quit for 6 years ???ETOH: Has stopped since the last visit ???Drugs: Cocacine ( has contiuned with soberity x7 weeks). * Medications:??Taking Ambien 10 MG Tablet 1 tablet at bedtime as needed Orally Once a day , Taking Omeprazole 20 MG Capsule Delayed Release 1 capsule 30 minutes before morning meal Orally Once a day , Taking Sucralfate 1 GM/10ML Suspension 10 mL 1 hour before meals and at bedtime on an empty stomach Orally Four times a day , Taking Carvedilol 3.125 MG Tablet 1 tablet with food Orally Twice a day , Notes to Pharmacist: cardiology, Taking Atorvastatin Calcium 80 MG Tablet 1 tablet Orally Once a day , Notes to Pharmacist: cardiology, Taking Losartan Potassium 25 MG Tablet 1 tablet Orally Once a day , Notes to Pharmacist: cardiology, Taking Fluconazole 200 MG Tablet 1 tablet Orally , Taking Valtrex 500 MG Tablet 1 tablet Orally Once a day , Taking Ferrous Sulfate , Taking Tamoxifen Citrate 20 MG Tablet 1 tablet Orally Once a day , Taking Aspirin 81 MG Tablet Chewable 1 tablet Orally Once a day , Taking Amitriptyline HCl 25 MG Tablet 1 tablet Orally Once a day , Taking Topiramate 50 MG Tablet 1 tablet Orally Twice a day , Taking Ferrous Gluconate 324 (38 Fe) MG Tablet TAKE 1 TABLET BY MOUTH TWICE DAILY , Taking Famotidine 20 MG Tablet TAKE 1 TABLET BY MOUTH TWICE DAILY , Taking Senna 8.6 MG Tablet TAKE 1 TO 2 TABLETS BY MOUTH EVERY NIGHT AT BEDTIME NEEDED , Taking traZODone HCl 100 MG Tablet TAKE 1 TABLET BY MOUTH AT BEDTIME , Taking Lactulose 10 GM/15ML Solution 15 ml Orally TID prn constipation , Taking Polyethylene Glycol 3350 17 GM/SCOOP Powder MIX 17GR(1 CAPFUL) INTO 8OZ OF WATER AND DRINK TWICE DAILY , Taking Albuterol Sulfate HFA 108 (90 Base) MCG/ACT Aerosol Solution 1 puff as needed Inhalation every 4 hrs , Taking Zolpidem Tartrate 10 MG Tablet TAKE 1 TABLET BY MOUTH EVERY NIGHT AT BEDTIME NEEDED , Taking Vitamin B12 100 MCG Tablet TAKE 1 TABLET BY MOUTH EVERY DAY , Taking Gabapentin 300 MG Capsule TAKE 1 CAPSULE BY MOUTH THREE TIMES DAILY , Taking predniSONE 20 MG Tablet 2 tablets Orally Once a day , Taking Dicyclomine HCl 20 mg Tablet TAKE ONE TABLET BY MOUTH FOUR TIMES DAILY @ [id number] , Unknown Escitalopram Oxalate 10 MG Tablet TAKE 1 TABLET BY MOUTH EVERY DAY , Medication List reviewed and reconciled with the patient Objective: * Vitals:??HR:95/min, BP:116/8 2mm Hg, Wt:238lbs, BMI:38.41Index, Ht: 66 in, Oxygen sat %:98%. * Physical Examination:?General: Well appearing, well nourished, age appropriate in no acute distress. Speaking in full, clear sentences. ?SKIN: Warm, dry intact. No rashes/lesions. ?HEENT: Normocephalic atraumatic. EOM intact. No nystagmus noted. PERRLA. ?LUNGS: Clear to auscultation bilaterally, no wheezes, rales or rhonchi ?CARDIAC: Regular rate and rhythm, no murmurs, rubs or gallops. ?Extremities: Warm and well perfused. No erythema or rash. ROM intact ?Neuro: CN II-XI grossly intact. Speaking in full sentences. Hearing intact. Assessment: * Assessment: 1.??Lymphoma, unspecified americo dy region, unspecified lymphoma type - C85.90 (Primary)??2.??Anxiety disorder, unspecified - F41.9??3.??Ductal carcinoma in situ (DCIS) of left breast - D05.12??4.??NK/T-cell lymphoma, unspecified type - C84.90??5.??Polysubstance abuse - F19.10??6.??Tobacco use - Z72.0??7.??Acute pain of left knee - M25.562??8.??Acute pain of left shoulder - M25.512?? #Lymphoma NK/T-cell lymphoma . Currently being followed by Dr. Guillory. Bone marrow biopsy at [facility] has been put on hold. She was recently treated with antibiotics by Dr. Guillory for possible left lung infection and will need follow-up CAT scan which is scheduled Mar 18. She has follow up with Dr. Guillory next week. #Anxiety and depression. Currently on Lexapro. Mood stable. #DCIS left breast. Status post resection 2021. Currently on tamoxifen. Has hot flashes. #Polysubstance abuse. Reports she has not used cocaine in several months and stopped alcohol since her hospitalization. Discussed at length and strongly encouraged to remain off of alcohol. #Left knee pain. She saw ortho yesterday and had cortisone injection with much improvement of symptoms. #Left shoulder pain. Requesting updated ortho referral for consideration of left shoulder injection. oulder Case discussed with collaborating physician Charline Pacheco who reviewed the assessment and plan. Chart, medications, labs, vital signs reviewed. Dictation was accomplished with the use of [employer] voice recognition software, prone to medical misidentifications and grammatical errors. This is unintentional and the practitioner does try to identify and correct these, but some could still be present. Please do not hesitate to contact practitioner for clarification. All questions answered to patients satisfaction. Patient verbalized understanding of diagnosis and treatments explained. To call sooner prior to next visit it any questions/concerns arise. Plan: * Treatment: * Follow Up:??6 Weeks (Reason: MM) * Images: Billing Information: * Visit Code:?? 74765 Office Visit, Est Pt., Level 4. * Procedure Codes:?? Care Plan Details* * Sign off status: Completed true * Provider:??Kala Davila PA-C Date:??02/13 History and Physical Notes * HPI (History of Present Illness) Category Sub-Category Detail Notes Category Not es Constitutional Ynes is a 54-year-old female with a past medical history of anxiety, hyperlipidemia, hypertension, asthma, obesity, history of breast cancer presents today for follow up. She has lymphoma and has been doing chemotherapy. She did recently see the orthopedist yesterday and had knee injections and feels much better. She has had left shoulder discomfort as well and is requesting a referral for injection of her left shoulder as well. Chemotherapy has been on hold. She is scheduled for follow-up chest CT on March 18 reports able to be doing chest and abdomen. She does have a follow-up with Dr. Prescott next week however this may get rescheduled until after she has her repeat imaging. Given recent illness and treatment for pneumonia her visits with [facility] have been put on hold. She did have an abnormal chest CT and was recently treated with antibiotics. She does note that she does cough a lot at home however and is wondering if her carpeting could be contributing. She is requesting a letter to give to her landlord to consider removing the car carpeting. Physical Examination Category Sub-Category Detail Notes Section Note s General: Well appearing, well nourished, age appropriate in no acute distress. Speaking in full, clear sentences. SKIN: Warm, dry intact. No rashes/lesions. HEENT: Normocephalic atraumatic. EOM intact. No nystagmus noted. PERRLA. LUNGS: Clear to auscultation bilaterally, no wheezes, rales or rhonchi CARDIAC: Regular rate and rhythm, no murmurs, rubs or gallops. Extremities: Warm and well perfused. No erythema or rash. ROM intact Neuro: CN II-XI grossly intact. Speaking in full sentences. Hearing intact. Consultation Request Notes Referral Date Referring Provider Referred Provider Not milind 2024 Kala Davila NEOS; left shou lder pain
--- OUTSIDE RECORDS SUMMARY | 2024-03-08 10:15 | XMS_ITS | Continuity of Care Document ---
Author Organization [facility] Address [address] [place] [address]- Care Team Providers Care Underlay Stitcher Name Role Phone Junior BERGERON, Justin Olivier Primary Care Physician [phone] [place] [facility] [place] 02/17/24 [facility] [address], [place] [address] Encounter Type: Triage Allergies, Adverse Reactions, Alerts [...] Team Personnel Name: Pilar Donovan RN Position: [facility] RN Member Role: Primary Care Nurse Name: Lita Wilson Position: [facility] Outreach Member Role: Lifetime Consulting Physician Address: [address] [place] [address] [place] Telecom: Name: Keena Cruz RN Position: [facility] RN Member Role: Primary Care Nurse Name: Evelia Joya RN Position: [facility] RN Member Role: Primary Care Nurse Name: Catalina Fong RN Position: [facility] RN Member Role: Primary Care Nurse Name: Zoe Yepez RN Position: [facility] RN Member Role: Primary Care Nurse Name: Efren Boateng RN Position: [facility] RN Member Role: Primary Care Nurse Name: Vanessa Ladd RN Position: [facility] Onco RN Member Role: Primary Care Nurse Name: Justin Pacheco MD Position: [facility] Physician - Primary Care Member Role: PCP Address: [address] [place] [address], [address] Primary [place] [address]- Telecom: Name: Tommy Segovia RN Position: [facility] RN Member Role: Primary Care Nurse Name: Rosa Salazar RN Position: [facility] RN Member Role: Primary Care Nurse Name: Renita Alberts RN Position: [facility] Onco RN Member Role: Primary Care Nurse Name: Nafisa Meyer RN Position: [facility] Onco RN Member Role: Primary Care Nurse Name: Digna Aguilar RN Position: [facility] Onco RN Member Role: Primary Care Nurse Name: Lazara Pineda Position: [facility] Outreach Member Role: Lifetime Consulting Physician Name: Ashli Pinto RN Position: [facility] Onco RN Member Role: Primary Care Nurse Name: Rufus Lugo RN Position: [facility] RN Member Role: Primary Care Nurse Name: Brian Rodriguez RN Position: [facility] RN Member Role: Primary Care Nurse Name: Jenn Upton RN Position: [facility] RN Member Role: Primary Care Nurse Name: Jasmin Morales RN Position: [facility] RN Member Role: Primary Care Nurse Name: Katelin Belle RN Position: [facility] RN Member Role: Primary Care Nurse Name: Annie Vazquez LPN Position: [facility] RN Member Role: Primary Care Nurse Name: Daysi Bull RN, I Position: [facility] RN Member Role: Primary Care Nurse Care Team Related Persons Name: PERNELL GARVEY Name: MARC LUND Name: KILLIAN GRACIA Name: OMKAR TOSCANO Insurance Providers Guarantor name: [facility] Information #: 1 Payer: [facility] [employer] Member Number: NA Policy Number: NA Group Number: NA
--- OUTSIDE RECORDS SUMMARY | 2024-03-08 10:16 | XMS_ITS ---
Author Organization [facility] Address [address] [place] [address] Care Team Providers Care Agricultural And Forestry Supervisor Name Role Phone BETH ARANA Primary Care Provider YOUNG MORALES Unavailable [phone] Giovanni, Kala Unavailable [phone] REASON FOR VISIT Knee xray MEDICATIONS Medication SIG (Take, Route, Fr equency, Duration) Notes Start Date End Date Status predniSONE 20 MG 2 tablets Orally Onc e a day for 5 days 02/04/2024 Active Encounters Encounter Location Date Provider Diagnosis [address] [facility] [address] [place] [address] 01/28/2024 Kala Davila PLAN OF TREATMENT Medication Medication Name Sig Start Date Stop Date Notes predniSONE 20 MG 2 tablets Orally Once a day for 5 days Next Appt Details Provider Name:Kala Moncadaeliz, 0 04/13/2024 02:00:00 PM, [address] [facility], [address], [place], [address], Progress Notes * MICHELE HERNANDEZ TDOB:1969 (53 yo F)Acc No.[id number]:01/28/2024 Patient:??MICHELE HERNANDEZ :1970?Age:53 Y?Sex:Fe male Address:[address], [address], [place] [address] * Refills?? Start predniSONE Tablet, 20 MG, Orally, 10 Tablet, 2 tablets, Once a day, 5 days, Refills=0 * true * Date:??
--- OUTSIDE RECORDS SUMMARY | 2024-03-08 10:16 | XMS_ITS | Data Portability ---
Author Organization [facility] Pain Managem ent, PAIN OFFICE Address [address] [place] [address] Care Team Providers Care Machine Striper Name Role Phone YASMEEN BETH Primary Care Provider EN AMARO Referring Provider [phone] Assessment Encounter Date Assessment Date Assessment LastModified by Organization Details LastModified Time 08/11/2019 08/11/2019 Ynes Alford is a 49 year old woman with low back pain radiating into the right lower extremity. On exam ,she has pain on flexion. Straight leg raising test is positive on the right. MRI Lumbar spine shows Mild disc herniation and degenerative changes at L3-4 causing mild flattening of the dural sac, marked right and moderate left-sided foraminal stenosis with possible right L3 nerve root compression. Postoperative changes L4-5 without evidence for recurrent disc herniation or nerve root compression. Minimal disc bulge L2-3. She has had physical therapy and is doing a home exercise program with persistent pain. Trial of Lumbar epidural steroid injections under fluoroscopic guidance was recommended. The risks and benefits of the procedure were discussed in detail. She wishes to proceed. An appointment will be booked after insurance approval. She needs a cdl truck driver on the day of the procedure. [email or web address] Not available 08/26/2019 10:16:34 09/27/2019 09/27/2019 Ynes Alford is a 49 year old woman with low back pain radiating into the right lower extremity. On exam ,she has pain on flexion. Straight leg raising test is positive on the right. MRI Lumbar spine shows Mild disc herniation and degenerative changes at L3-4 causing mild flattening of the dural sac, marked right and moderate left-sided foraminal stenosis with possible right L3 nerve root compression. Postoperative changes L4-5 without evidence for recurrent disc herniation or nerve root compression. Minimal disc bulge L2-3. She has had physical therapy and is doing a home exercise program with persistent pain. She is here for a trial of Lumbar epidural steroid injections under fluoroscopic guidance .The risks and benefits of the procedure were discussed in detail. She wishes to proceed. She will follow up in four weeks by telehealth karla Not available 09/27/2019 14:07:39 10/26/2019 10/26/2019 Ynes Alford is a 49 year old woman with low back pain radiating into the right lower extremity. MRI Lumbar spine shows Mild disc herniation and degenerative changes at L3-4 causing mild flattening of the dural sac, marked right and moderate left-sided foraminal stenosis with possible right L3 nerve root compression. Postoperative changes L4-5 without evidence for recurrent disc herniation or nerve root compression. Minimal disc bulge L2-3. She has had physical therapy and is doing a home exercise program with persistent pain. This is a trial of Lumbar epidural steroid injections under fluoroscopic guidance . She reports good ongoing pain benefit. she can follow up as needed. She is complaining of knee pain. She had an EMG/NCV study done. She will obtain the results. [email or web address] Not available 10/26/2019 13:16:46 03/30/2020 03/30/2020 Ynes Alford is a 49 year old woman with right knee pain. 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 I recommend a course of physical therapy. She can follow up 6 weeks after physical therapy. [email or web address] Not available 04/17/2020 11:24:18 06/26/2021 06/26/2021 Ynes Alford is a 51 year old woman with low back pain radiating into the right lower extremity. On exam ,she has pain on flexion. Straight leg raising test is positive on the right. MRI Lumbar spine shows Mild disc herniation and degenerative changes at L3-4 causing mild flattening of the dural sac, marked right and moderate left-sided foraminal stenosis with possible right L3 nerve root compression. Postoperative changes L4-5 without evidence for recurrent disc herniation or nerve root compression. Minimal disc bulge L2-3. She has had physical therapy and is doing a home exercise program with persistent pain. Repeat Lumbar epidural steroid injections under fluoroscopic guidance was recommended. The risks and benefits of the procedure were discussed in detail. She wishes to proceed. An appointment will be booked after insurance approval. She needs a cdl truck driver on the day of the procedure. [email or web address] Not available 06/26/2021 15:40:08 Plan of Treatment Reminders Order Date Submit Date Provider Last Modified By Organization Details Last Modified Time Details Appointments None recorded . Lab None recorded . Referral physical therapis t referral 2020 021 [facility] [address], [address], [place], [place], [address], 08:33:02 Procedures None recorded . Surgeries None recorded . Imaging None recorded . Medication Orders None recorded . Patient TargetsNo targets recorded. Patient Instructions Encounter Date Encounter Id Patient Instructions Last Modified By Organization Details Last Modified Time 08/11/2019 [id number] She was advised against bed rest lasting longer than four days and to continue activities as tolerated. [email or web address] Not available 08/26/2019 10:13:34 09/27/2019 [id number] She was advised against bed rest lasting longer than four days and to continue activities as tolerated. [email or web address] Not available 09/27/2019 14:06:57 10/26/2019 [id number] She was advised against bed rest lasting longer than four days and to continue activities as tolerated. [email or web address] Not available 10/26/2019 13:14:59 03/30/2020 [id number] She was advised against bed rest lasting longer than four days and to continue activities as tolerated. Telehealth visit: The patient was located at home for this telephone electronic visit and gave consent for this visit to be conducted via telehealth. 15 minutes was spent on this call and greater than 50% of the visit was spent on counseling and coordination of care. [email or web address] Not available 04/17/2020 11:24:34 06/26/2021 [id number] She was advised against bed rest lasting longer than four days and to continue activities as tolerated. Telehealth visit: The patient was located at home for this telephone electronic visit and gave consent for this visit to be conducted via telehealth. 15 minutes was spent on this call and greater than 50% of the visit was spent on counseling and coordination of care. [email or web address] Not available 06/27/2021 09:40:11 Reason for Referral Physical Therapist Referral for Common peroneal neuropathy Referring Physician: Richard Leonard, Pain Management, Encounter Date: 03/30/2020 Results Created Date Observation Date Name Description Value Unit Range Abnormal Flag Note LastModifiedBy Organization Detail LastModifiedTime 10/27/19 20 12/07/2018 nerve condu ction study /EMG, lower extre mity (PROC ) No observ ation record ed. [facility] [address] [place], [address], 12/06/2019 10:12:28 Result Notes None recorded. Problems Name Problem SNOMED Code Status Onset Date Resolution Date Notes Provider Name and Address Organization Details Recorded Time Spinal stenosis of lumbar region 95856029 Active Richard Leonard MD [address] [facility] [facility] , [address], [place], [address] , [place] [facility] 0 14:17:54 Problem Notes None recorded. Procedures Surgical History Date Name Laterality Status Provider Name and Address Organization Details Recorded Time 09/27/19 20 Lumbar Epidural steroid injection under fluoroscopic guidance completed Richard Leonard MD [address] [facility] , [address], [place], [address], [place] [facility] 09/27/2019 14:04:41 Back Surgery completed Richard Leonard MD [address] [facility] [facility] , [address], [place], [address], [place] [facility] 08/25/2019 15:45:40 reduction mammoplasty completed Richard Leonard MD [address] [facility] , [address], [place], [address], [place] [facility] 08/25/2019 15:46:00 Tubal Ligation completed Richard Leonard MD [address] [facility] [facility] , [address], [place], [address], [place] [facility] 08/25/2019 15:46:15 Imaging Results Imaging Date Name Status LastModified by Organiz ation Details LastModified Time 12/07/2018 nerve conduction study/EMG, lower extremity (PROC) completed [facility] [address] [place], [address], 12/06/2019 10:12:28 Procedure Notes None recorded. Medical Equipment None Reported. Allergies No known drug allergies Medications Name Sig Start Date Stop Date Status Note LastModified by Organization Details LastModified Time celecoxib 200 mg capsule TAKE 1 CAPSULE BY MOUTH EVERY DAY WITH FOOD active Not Available Not Available No t Available amoxicillin 500 mg capsule 09/26 completed Not Available Not Available Not Available gabapentin 600 mg tablet TK 1 T PO BID 06/26 completed Not Available Not Available Not Available cyanocobala min (vit B-12) 100 mcg tablet TAKE 1 TABLET BY MOUTH EVERY DAY active Not Available Not Available No t Available cetirizine 10 mg tablet TAKE 1 TABLET BY MOUTH EVERY DAY active Not Available Not Available No t Available ibuprofen 800 mg tablet active Not Available Not Available Not Available ketotifen 0.025 % (0.035 %) eye drops active Not Available Not Available No t Available senna 8.6 mg tablet TAKE 1 TO 2 TABLETS BY MOUTH EVERY NIGHT AT BEDTIME NEEDED active Not Available Not Available No t Available prednisone 20 mg tablet 06/26 completed Not Available Not Available Not Available rizatriptan 10 mg tablet TAKE 1/2 TO 1 TABLET AT ONSET OF MIGRAINE. MAY REPEAT ONCE IN 2 HOURS. MAX OF 2 PER DAY/4 PER WEEK active Not Available Not Available No t Available metronidazo le 500 mg tablet TK 1 T PO Q 12 H FOR 7 DAYS 06/26 completed Not Available Not Available Not Available valacyclovi r 500 mg tablet TAKE 1 TABLET BY MOUTH DAILY 06/26 completed Not Available Not Available Not Available ciprofloxac in 500 mg tablet 09/26 completed Not Available Not Available Not Available sulfamethox azole 800 mg-trimetho prim 160 mg tablet 06/26 completed Not Available Not Available Not Available peg-electro lyte solution 420 gram oral solution 06/26 completed Not Available Not Available Not Available aspirin 81 mg tablet,laury yed release TAKE 1 TABLET BY MOUTH DAILY active Not Available Not Available No t Available meloxicam 7.5 mg tablet 09/26 completed Not Available Not Available Not Available amitriptyli ne 25 mg tablet TAKE 1 TABLET BY MOUTH EVERY NIGHT AT BEDTIME active Not Available Not Available No t Available lorazepam 0.5 mg tablet 08/10 completed Not Available Not Available Not Available trazodone 100 mg tablet TAKE 1 TABLET BY MOUTH AT BEDTIME active Not Available Not Available No t Available dicyclomine 20 mg tablet TAKE 1 TABLET BY MOUTH FOUR TIMES DAILY active Not Available Not Available No t Available simvastatin 20 mg tablet TAKE 1 TABLET BY MOUTH AT BEDTIME active Not Available Not Available No t Available gabapentin 300 mg capsule TAKE 1 CAPSULE BY MOUTH TWICE DAILY active Not Available Not Available No t Available diclofenac sodium 75 mg tablet,laury yed release active Not Available Not Available Not Available montelukast 10 mg tablet TAKE 1 TABLET BY MOUTH DAILY active Not Available Not Available No t Available lorazepam 1 mg tablet TK 1 T PO 1 HOUR BEFORE PROCEDURE active Not Available Not Available No t Available polyethylen e glycol 3350 17 gram/dose oral powder MIX 17 GRAMS INTO 8 OUNCES OF WATER TWICE DAILY 06/26 completed Not Available Not Available Not Available zolpidem 10 mg tablet TAKE 1 TABLET BY MOUTH EVERY DAY AT BEDTIME NEEDED active Not Available Not Available No t Available ipratropium bromide 42 mcg (0.06 %) nasal spray USE 2 SPRAYS IN EACH NOSTRIL UP TO FOUR TIMES DAILY active Not Available Not Available No t Available fluticasone propionate 50 mcg/actuati on nasal spray,suspe nsion SHAKE LQ AND U 1 SPR IEN QD active Not Available Not Available No t Available tamoxifen 20 mg tablet TAKE 1 TABLET BY MOUTH DAILY PLEASE. CALL MEDICAL DOCTOR WITH SIGNIFICA NT SIDE EFFECTS active Not Available Not Available No t Available loratadine 10 mg tablet 09/26 completed Not Available Not Available Not Available oxycodone 5 mg tablet TAKE 1 TABLET BY MOUTH EVERY 6 HOURS NEEDED FOR PAIN 06/26 completed Not Available Not Available Not Available escitalopra m 5 mg tablet TAKE 1 TABLET BY MOUTH DAILY active Not Available Not Available No t Available topiramate 50 mg tablet TAKE 1 TABLET BY MOUTH EVERY MORNING THEN TAKE 2 TABLETS BY MOUTH EVERY NIGHT AT BEDTIME active Not Available Not Available No t Available ferrous gluconate 324 mg (38 mg iron) tablet TAKE 1 TABLET BY MOUTH TWICE DAILY active Not Available Not Available No t Available buprenorphi ne 2 mg-naloxone 0.5 mg sublingual film 08/10 completed Not Available Not Available Not Available Nasacort 55 mcg nasal spray aerosol USE 1 TO 2 SPRAYS IN EACH NOSTRIL DAILY active Not Available Not Available No t Available Vitals Date Recorded Body height Body mass index (BMI) Body weight Heart rate Oxygen saturation Oxygen saturation in Arterial blood by Pulse oximetry Systolic blood pressure Diastolic blood pressure Provider Name and Address Organization Details Last Updated DateTime 0 172.72 cm 25.2 kg/m2 87546.3 3 g 72 /min 99 % 99 % 159 mm[Hg] 86 mm[Hg] Eufemia Garcia [facility] 0 13:15:34 Date Recorded Body height Heart rate Oxygen saturation Oxygen saturation in Arterial blood by Pulse oximetry Systolic blood pressure Diastolic blood pressure Provider Name and Address Organization Details Last Updated DateTime 0 172.72 cm 79 /min 100 % 100 % 103 mm[Hg] 63 mm[Hg] Eufemia Garcia [facility] 0 13:40:08 Social History Question Answer Notes LastModified by [employer] Details LastModified Time Tobacco Smoking Status Former Smoker Not [facility] 12/30/2019 03:16:10 Are You Currently Employed? Yes [employer] Information not available 06/26/2021 Do You Or Have You Ever Used E-cigarettes Or Vape? 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 1 PPD [id number] Information not available 12/30/2019 How Many Years Have You Smoked Tobacco? 33 [id number] Information not available 12/30/2019 Sex: Unknown Functional Status None recorded. Mental Status None recorded. Family History Relationship Description Onset Age of this Age Resolved Age Notes LastModified by Organization Details LastModified Time Father Asthma [email or web address] Not availabl e 08/25/2019 15:45:09 Mother Hypertensive disorder [email or web address] Not available 08/14 15:45:28 Notes:Mother;HTN, Diabetes, Osteoporosis; melanoma. Patients father Asthma Medical History Condition Response Coronary Artery Disease Y Gout N Neuropathy/Neuralgia Y Kidney Stones N Hyperthyroidism N Hypothyroidism N Depression Y COPD N Migrane Y Diabetes N Anxiety Disorder Y Arthritis Y Seizures/Epilepsy N Hyperlipidemia N Cancer N Stroke N Asthma Y HIV/AIDS N Headache Y Bipolar Disorder Y GERD/Reflux N High Cholesterol N Liver Disease N Pulmonary Embolism N Fibromyalgia N Irritable Bowel Syndrome Y Hypertension N Osteoporosis N Kidney Disease N Gynecological HistoryNo gynecological history recorded. Obstetrics History GPAL:G 0 P 0 0 0 0 Past Encounters Encounter ID Performer Location Encounter Start Date Encounter Closed Date Diagnosis/Indication Diagnosis SNOMED-CT Code Diagnosis ICD10 Code [id number] Richard Leonard MD [facility] [address] [facility] [place] [address] 08/11/2019 12:49:54 08/26/2019 10:17:54 Spinal stenosis of lumbar region 67115509 M48.061 Degenerati on of lumbar intervertebral disc 42235808 M51.36 Lumbosacra l radiculopathy 1257797 M54.17 [id number] Richard Leonard MD PAIN OFFICE [address] [facility] [place] [address] 09/27/2019 13:29:23 09/27/2019 14:08:32 Spinal stenosis of lumbar region 39000315 M48.061 Degenerati on of lumbar intervertebral disc 52897526 M51.36 Lumbosacra l radiculopathy 9958220 M54.17 [id number] Richard Leonard MD PAIN OFFICE [address] [facility] [place] [address] 10/26/2019 13:08:50 10/26/2019 13:17:39 Spinal stenosis of lumbar region 53005278 M48.061 Degenerati on of lumbar intervertebral disc 91519494 M51.36 Lumbosacra l radiculopathy 8017382 M54.17 [id number] Richard Leonard MD [facility] [address] [facility] [place] [address] 03/30/2020 09:02:14 04/17/2020 11:25:22 Common peroneal neuropathy 915564770 G57.31 Spinal ignacio nosis of lumbar region 69303827 M48.061 Degenerati on of lumbar intervertebral disc 76912158 M51.36 Lumbosacra l radiculopathy 5141319 M54.17 [id number] Richard Leonard MD [facility] [address] [place] [address] [place] [address] 06/26/2021 14:58:28 06/26/2021 15:51:46 Lumbosacral radiculopathy 7688401 M54.17 Degenerati on of lumbar intervertebral disc 13795514 M51.36 Spinal ignacio nosis of lumbar region 52678933 M48.061 Health Concerns Section Related Observation LastModified by Organization Detai ls LastModified Time None Recorded Concern Status LastModified by Organization Details LastModified Time None Recorded Advance Directives Directive None Recorded Payers Encounter Date Sequence Insurance Name Policy Number Policy So Covered Member ID So Member ID Guarantor Name 08/11/2019 1 [facility] - DOS PRIOR TO 2022 - DUAL ELIGIBLE (MEDICARE REPLACEMENT/ADV ANTAGE - HMO) Ynes Alford [id number] Ynes Alford 09/27/2019 1 [facility] [employer] - DOS PRIOR TO 2022 - DUAL ELIGIBLE (MEDICARE REPLACEMENT/ADV ANTAGE - HMO) Ynes Prashanth [id number] Ynes Prashanth 10/26/2019 1 [facility] [employer] - DOS PRIOR TO 2022 - DUAL ELIGIBLE (MEDICARE REPLACEMENT/ADV ANTAGE - HMO) Ynes Prashanth [id number] Ynes Prashanth 03/30/2020 1 [facility] [employer] - DOS PRIOR TO 2022 - DUAL ELIGIBLE (MEDICARE REPLACEMENT/ADV ANTAGE - HMO) Ynes Prashanth [id number] Ynes Prashanth 06/26/2021 1 [facility] [employer] - DOS PRIOR TO 2022 - DUAL ELIGIBLE (MEDICARE REPLACEMENT/ADV ANTAGE - HMO) Ynes Prashanth [id number] Ynes Brownos Notes Date Note Type Note Provider Name and Address Organization Details Recorded Time 08/11/2019 text/html Ynes Alford is a 49 year old woman with complaints of low back pain radiating into right lower extremity. The pain started few months ago . She is S/P Back surgery by Dr. Page with persistent pain. Her back surgeries were on 2008 and 2009 . She states she is very active and started to have severe pain radiating into right lower extremity. She describes the pain as a shooting pain , sharp from her right buttock region to the right leg with numbness, tingling and weakness in her right lower extremity. Current pain level is 5-10/10. Pain is aggravated by standing and walking . Pain is relieved a little with application of heat. She is unable to sleep due to positioning and awakens multiple times at night due to pain. She has no history of bladder or bowel incontinence.MRI Lumbar spine shows Mild disc herniation and degenerative changes at L3-4 causing mild flattening of the dural sac, marked right and moderate left-sided foraminal stenosis with possible right L3 nerve root compression. Postoperative changes L4-5 without evidence for recurrent disc herniation or nerve root compression. Minimal disc bulge L2-3.She has trialed physical therapy with some pain benefit. Richard Leonard MD [address] [facility] , [address], [place], [address], [facility] - Pain Management 08/29/2019 13:11:20 09/27/2019 text/html She is here for a trial of lumbar epidural steroid injection under fluoroscopic guidance. Richard Leonard MD [address] [facility] , [address], [place], [address], [facility] 09/28/2019 08:39:20 10/26/2019 text/html This is a follow up after a lumbar epidural steroid injection under fluoroscopic guidance. She reports 90% pain relief which is ongoing. She is walking better and has been walking one mile a day or more. She is complaining of occasionally achiness in her low back . She has no history of bladder or bowel incontinence.She is complaining of knee pain Richard Leonard MD [address] [facility] , [address], [place], [address], [facility] 10/27/2019 08:57:00 03/30/2020 text/html This is a follow up. She is complaining of pain in the lateral aspect of her right knee. 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 She is wondering if an injection might help the nerve pain. Richard Leonard MD [address] [facility] , [address], [place], [address], [facility] Pain Management 04/18/2020 08:56:16 06/26/2021 text/html Ynes Alford is a 51 year old woman with complaints of low back pain radiating into right lower extremity. The pain started few months ago . She is S/P Back surgery by Dr. Page with persistent pain. Her back surgeries were on 2008 and 2009 . She states she is very active and started to have severe pain radiating into right lower extremity. She describes the pain as a shooting pain , sharp from her right buttock region to the right leg with numbness, tingling and weakness in her right lower extremity. She has pain occasionally in her left leg. Current pain level is 5-10/10. Pain is aggravated by standing and walking . Pain is relieved a little with application of heat. She is unable to sleep due to positioning and awakens multiple times at night due to pain. She has no history of bladder or bowel incontinence.MRI Lumbar spine shows Mild disc herniation and degenerative changes at L3-4 causing mild flattening of the dural sac, marked right and moderate left-sided foraminal stenosis with possible right L3 nerve root compression. Postoperative changes L4-5 without evidence for recurrent disc herniation or nerve root compression. Minimal disc bulge L2-3.She has trialed physical therapy with some pain benefit.She was last seen on 09/27/2019 for lumbar epidural steroid injection under fluoroscopic guidance with good pain relief until a few months ago. She is working in a [employer] and feels her low back pain limits her activity. Richard Leonard MD [address] [facility] , [address], [place], [address], [facility] Pain Management 06/27/2021 09:40:20 OBGyn Episode No OBEpisode recorded.
--- OUTSIDE RECORDS SUMMARY | 2024-03-08 10:16 | XMS_ITS | Patient Health Record ---
Author Organization [facility] Address [address] [place] [address] Care Team Providers Care Clean Out Driller Name Role Phone PACHECO, MALLYJEFF Primary Care Provider YOUNG MORALES Unavailable [phone] DEVIN GURROLA Unavailable [phone] CucoOksana torres Unavailable [phone] ALLERGIES No Known Allergies RESULTS Component Value Reference Range Notes CBC WITH AUTO DIFFERENTIAL Reviewed date:01/28/2024 02:21:31 PM Interpretation: Performing Lab: Notes/Report: WBC 4.9 4.8-10.8 K/mcL RBC 3.80 3.80-4.80 M/mcL Hemoglobin 11.3 11.5-16.0 g/dL Hematocrit 36.8 35.0-47.0 % MCV 96.8 79.0-98.0 FL MCH 29.7 27.0-32.0 pcg MCHC 30.7 32.0-37.0 g/dL RDW 15.2 11.0-15.0 % Platelets 322 130-400 K/mcL MPV 10.8 7.0-11.0 FL NRBC 0.0 <1.0 % NRBC Absolute 0.00 <0.10 K/mcL Neutrophils Relative 49.8 Lymphocytes Relative 33.0 Monocytes Relative 16.8 Eosinophils Relative 0.0 Basophils Relative 0.2 Immature Granulocytes Relative 0.2 Neutrophils Absolute 2.46 1.50-7.00 K/mcL Lymphocytes Absolute 1.63 1.00-5.00 K/mcL Monocytes Absolute 0.83 0.20-1.00 K/mcL Eosinophils Absolute 0.00 0.00-0.50 K/mcL Basophils Absolute 0.01 0.00-0.20 K/mcL Immature Granulocytes Absolute 0.01 0.00-0.03 K/mcL URIC ACID Reviewed date:01/28/2024 04:18:17 PM Interpretation: Performing Lab: Notes/Report: Uric Acid 5.3 3.1-7.8 mg/dL XR KNEE 4+ VIEWS LEFT Reviewed date:02/04/2024 02:02:49 PM Interpretation: Performing Lab: Notes/Report: Note See Note [facility], a member of [facility] Patient Name: MICHELE ALFORD Date of : 1970 Reason for Exam: ACUTE PAIN OF LEFT KNEE Exam Date: 01/28/2024 [id number] EST Report Status: Final Ordering Provider: OKSANA GOTTLIEB PCP: YOUNG MORALES HISTORY: The patient is a 53-year-old female with acute onset of left knee pain. No history of trauma is provided. FINDINGS: AP, latera l, internal rotation, and external rotation views of the left knee are obtained. The study demonstrates no fracture or dislocation. There is narrowing of the medial compartment of the femoral-tibial joint space and there is peaking of the tibial spines. These findings are consistent with mild osteoarthritis. There is a moderate size suprapatellar joint effusion. IMPRESSION: No fracture or dislocation. Mild osteoarthritis. There is a moderate size suprapatellar joint effusion. Code 93794 -------- FINAL REPOR T -------- Dictated By: Golden Wheeler Dictated Date: 01/28 07:58 ET Assigned Physician: Golden Wheeler Reviewed and Electronically Signed By: Golden Wheeler Signed Date: 07:59 ET Workstation ID: [id number] Transcribed By: Self Edit Transcribed Date: 01/29/2024 07:58 ET REASON FOR REFERRAL Reason NEOS; left shoulder pain Diagnosis 1 Left shoulder pain, unspecified chronicity (M25.512) Referral Organization [place] [address] Referring Provider First Name Oksana Referring Provider Last Name Giovanni Referring Provider Speciality Internal M edicine Referred Provider Specialty Orthopedic S urgery General Notes [address] [place] , (p) [phone], (f) [phone] Clinical Notes Bev Alford 02:34:48 PM > referral faxed Referral Priority Routine MEDICATIONS Medication SIG (Take, Route, Frequency, Duration) Notes Start Date End Date Status Amitriptyline HCl 25 MG 1 tablet Orally Once a day for 30 day(s) Active Aspirin 81 MG 1 tablet Orally Once a day Active traZODone HCl 100 MG TAKE 1 TABLET BY [facility] AT BEDTIME for 90 Active Ferrous Gluconate 324 (38 Fe) MG TAKE 1 TABLET BY MOUTH TWICE DAILY for 90 Active Topiramate 50 MG 1 tablet Orally Twic e a day for 30 day(s) Active Senna 8.6 MG TAKE 1 TO 2 TABLETS BY MOUTH EVERY NIGHT AT BEDTIME NEEDED for 45 Active Famotidine 20 MG TAKE 1 TABLET BY [facility] TWICE DAILY for 90 Active Lactulose 10 GM/15ML 15 ml Orally TID pr n constipation for 10 days 02/13/2022 Active Albuterol Sulfate HFA 108 (90 Base) MCG/ACT 1 puff as needed Inhalation every 4 hrs for 30 days Active Polyethylene Glycol 3350 17 GM/SCOOP MIX 17GR(1 CAPFUL) INTO 8OZ OF WATER AND DRINK TWICE DAILY for 180 Active Escitalopram Oxalate 10 MG TAKE 1 TABLET BY MOUTH EVERY DAY for 90 Active Zolpidem Tartrate 10 MG TAKE 1 TABLET BY MOUTH EVERY NIGHT AT BEDTIME NEEDED for 90 12/21/2023 Active Ambien 10 MG 1 tablet at bedtime as needed Orally Once a day Active Gabapentin 300 MG TAKE 1 CAPSULE BY [facility] THREE TIMES DAILY for 90 Active Vitamin B12 100 MCG TAKE 1 TABLET BY [facility] EVERY DAY for 90 Active Sucralfate 1 GM/10ML 10 mL 1 hour before meals and at bedtime on an empty stomach Orally Four times a day Active Dicyclomine HCl 20 mg TAKE ONE TABLET BY MOUTH FOUR TIMES DAILY @ [id number] for 90 Active Omeprazole 20 MG 1 capsule 30 minutes before morning meal Orally Once a day Active predniSONE 20 MG 2 tablets Orally Onc e a day for 5 days 02/04/2024 Active Atorvastatin Calcium 80 MG 1 tablet Orally Once a day cardiology Active Carvedilol 3.125 MG 1 tablet with food Orally Twice a day cardiology Active Fluconazole 200 MG 1 tablet Orally Active Losartan Potassium 25 MG 1 tablet Orally Once a day cardiology Active Ferrous Sulfate Acti ve Valtrex 500 MG 1 tablet Orally Once a day Active Tamoxifen Citrate 20 MG 1 tablet Orally Once a day Active IMMUNIZATIONS Vaccine Route Administration Date Status Comme nts influenza IM Intramuscular 12/20/2019 Administered Influenza, high dose seasonal IM Intramuscular 01/28/2018 Administered Influenza, high dose seasonal IM Intramuscular 11/17/2018 Administered SOCIAL HISTORY Tobacco Use: Social History Observation [...] ( has contiuned with soberity x7 weeks) Tob: Smoking 3 cigarettes per day (recently started in August 2022) started at the age of 15; quit for 6 years ETOH: Has stopped since the last visit Drugs: Cocacine ( has contiuned with soberity x7 weeks) Tob: Smoking 3 cigarettes per day (recently started in August 2022) started at the age of 15; quit for 6 years ETOH: Has stopped since the last visit Drugs: Cocacine ( has contiuned with soberity x7 weeks) Tob: Smoking 3 cigarettes per day (recently started in August 2022) started at the age of 15; quit for 6 years ETOH: Has stopped since the last visit Drugs: Cocacine ( has contiuned with soberity x7 weeks) Tob: Smoking 1/2 PPD (recently started in August 2022) ETOH: Weekends Drugs: Cocacine ( has been free for a week) Tob: Smoking 1/2 PPD (recently started in August 2022) ETOH: Weekends Drugs: Cocacine ( has been free for a week) PROBLEMS Problem Type ICD Code Onset Dates Problem Status W/U Status Risk SNOMED Code Notes Problem Hyperlipidemia, unspecified (E78.5) Active confirmed Hyperlip idemia (69096169) Problem Anxiety disorder, unspecified (F41.9) Active confirmed Anxiety disorder (530600466) Problem Somatoform disorder, 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) Active confirmed Problem Primary insomnia (F51.01) Active confirmed 5873809 Problem Sleep disorder not due to a substance or known physiological condition, unspecified (F51.9) Active confirmed Non-orga ezekiel sleep disorder (406216777) Problem Meralgia paresthetica, unspecified lower limb (G57.10) Active confirmed Meralgia paresthetica (77501637) Problem Chronic pain syndrome (G89.4) Active confirmed Chronic eduardo n syndrome (727419002) Problem Essential (primary) hypertension (I10) Active confirmed 73479470 Problem Allergic rhinitis due to food (J30.5) Active confirmed Allergic rhinitis due to food (928420190) Problem Unspecified asthma, uncomplicated (J45.909) Active confirmed Uncomplicated asthma (disorder) (994341884) Problem Constipation, unspecified (K59.00) Active confirmed Constipation (08070899) Problem Lumbago with sciatica, unspecified side (M54.40) Active confirmed Sciatica (98920678) Problem Body mass index (BMI) 35.0-35.9, adult (Z68.35) Active confirmed Obese class I I (000233241642560) Problem Adult general medical exam (Z00.00) Active confirmed Adult health examination (723965899) Problem Depression, unspecified depression type (F32.9) Active confirmed Depressive disorder (disorder) (69903161) Problem Lymphoma, unspecified body region, unspecified lymphoma type (C85.90) Active confirmed Non-Hodgkin lymphoma (985327981) Problem Left shoulder pain, unspecified chronicity (M25.512) Active confirmed Shoulder joint pain (584283507) Problem Vitamin D deficiency (E55.9) Active confirmed Vitamin D deficiency (05830028) Problem Skin lesion (L98.9) Active confirmed Sk in lesion (68131814) Problem Gastroesophageal reflux disease, unspecified whether esophagitis present (K21.9) Active confirmed 254659768 Problem Constipation in female (K59.00) Active confirmed Constipation (20977090) Problem Alcohol abuse (F10.10) Active confirmed Alcohol abuse (86665933) Problem Cardiomyopathy, unspecified type (I42.9) Active confirmed 91331351 Problem 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) Active confirmed 0411057294620332 Problem New onset type 2 diabetes mellitus (E11.9) Active confirmed Type II diabete s mellitus without complication (734158950) Problem Cocaine abuse (F14.10) Active confirmed Cocaine abuse (17124958) Problem Nasal obstruction (J34.89) Active confirmed Nasal obstructi on (883548630) Problem Polysubstance abuse (F19.10) Active confirmed 314392679 Problem NK/T-cell lymphoma, 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 confirmed 879526231 VITAL SIGNS Heart Rate 95 /min 2024 Oximetry 98 % 2024 Blood pressure diastolic 82 mm Hg 2024 Height 66 in 2024 Blood pressure systolic 116 mm Hg 2024 Weight 238 lbs 2024 BMI 38.41 kg/m2 2024 Encounters Encounter Location Date Provider Diagnosis [facility] [address] [place] [address] 04/07/2023 MALLYJEFF PACHECO [facility] [address] [address] 05/14/2023 MALLYJEFF PACHECO [facility] [address] [facility] [facility] [address] [address] [facility] [address] [facility] [address] [place] [address] 11/13/2023 Oksana Svrcek Lymphoma, unspecifie d body region, unspecified lymphoma type C85.90 ; Anxiety disorder, unspecified F41.9 ; Ductal carcinoma in situ (DCIS) of left breast D05.12 ; Gastroesophageal reflux disease, unspecified whether esophagitis present K21.9 ; NK/T-cell lymphoma, unspecified type C84.90 ; Polysubstance abuse F19.10 and Bradycardia R00.1 [address] [address] 07/09/2023 Oksana Svrcek Lymphoma, unspecifie d body region, unspecified lymphoma type C85.90 ; Anxiety disorder, unspecified F41.9 ; Ductal carcinoma in situ (DCIS) of left breast D05.12 ; Gastroesophageal reflux disease, unspecified whether esophagitis present K21.9 ; NK/T-cell lymphoma, unspecified type C84.90 ; Polysubstance abuse F19.10 and Bradycardia R00.1 [address] [address] 11/26/2023 Oksana Svrcek Anxiety disorder, unspecified F41.9 ; Lymphoma, unspecified body region, unspecified lymphoma type C85.90 ; Ductal carcinoma in situ (DCIS) of left breast D05.12 ; Gastroesophageal reflux disease, unspecified whether esophagitis present K21.9 ; NK/T-cell lymphoma, unspecified type C84.90 ; Polysubstance abuse F19.10 and Tobacco use Z72.[address] [address] 01/28/2024 Oksana Giovanni Anxiety disorder, unspecified F41.9 ; Lymphoma, unspecified body region, unspecified lymphoma type C85.90 ; Ductal carcinoma in situ (DCIS) of left breast D05.12 ; Gastroesophageal reflux disease, unspecified whether esophagitis present K21.9 ; NK/T-cell lymphoma, unspecified type C84.90 ; Polysubstance abuse F19.10 ; Tobacco use Z72.0 and Acute pain of left knee M25.562 [address] [address] 2024 Oksana Giovanni Anxiety disorder, unspecified F41.9 ; Lymphoma, unspecified body region, unspecified lymphoma type C85.90 ; Ductal carcinoma in situ (DCIS) of left breast D05.12 ; NK/T-cell lymphoma, unspecified type C84.90 ; Polysubstance abuse F19.10 ; Tobacco use Z72.0 ; Acute pain of left knee M25.562 and Acute pain of left shoulder M25.512 [facility] [address] [address] 05/19/2023 [facility] [address] [address] 05/27/2023 [facility] [address] [address] 07/06/2023 DEVIN GURROLA [address] [address] 07/09/2023 TALAL PACHECO [facility] [address] [place] [address] 09/09/2023 Oksana Svrbessiek [facility] [address] [place] [address] 10/07/2023 Oksana Svrcek [address] [address] 11/25/2023 Oksana Svrcek [facility] [address] [address] 11/26/2023 [facility]ETH PACHECO [address] [facility] [address] [place] [address] 11/30/2023 [facility]k [facility] [address] [address] 12/08/2023 BETH PACHECO [address] [address] 01/28/2024 Oksana Svrcek [address] [address] 02/09/2024 Oksana Svrcek ASSESSMENTS Encounter Date Diagnosis Assessment Notes Treatment Notes Treatment Clinical Notes Section Notes 07/09/2023 Anxiety disorder, unspecified (ICD-10 - F41.9) #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 She is doing chemotherapy about once a month which has required her to be admitted to the hospital for a week at a time due to side effects she has had with the chemotherapy. She reports she was just contacted from [facility] today to say that they found a match for a bone marrow transplant. She has to quit tobacco use prior to transplant and is working on that actively. She has had difficulty attending her appointments secondary to side effects from chemotherapy. She is interested in evaluation for home care/VNA. Will place referral. May also benefit from transportation to medical visits. #Anxiety and depression. Currently on Lexapro. #DCIS left breast. Status post resection 2021. Currently on tamoxifen. #GERD. Currently on famotidine, omeprazole and sucralfate. #Bradycardia. She had symptomatic bradycardia dyspnea and lightheadedness during chemotherapy. Chemotherapy was put on hold. She has been seeing cardiology and reports she was just cleared to resume chemotherapy and bone marrow transplant. Cardiology made recent changes to her medications. Currently on carvedilol, losartan, atorvastatin and aspirin. Case discussed with collaborating physician Thierno Pacheco who reviewed the assessment and plan. Chart, medications, labs, vital signs reviewed. Dictation was accomplished with the use of [employer] voice recognition software, prone to medical misidentifications and grammatical errors. This is unintentional and the practitioner does try to identify and correct these, but some could still be present. Please do not hesitate to contact practitioner for clarification. All questions answered to patients satisfaction. Patient verbalized understanding of diagnosis and treatments explained. To call sooner prior to next visit it any questions/concerns arise. 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 She is doing chemotherapy about once a month which has required her to be admitted to the hospital for a week at a time due to side effects she has had with the chemotherapy. She reports she was just contacted from [facility] today to say that they found a match for a bone marrow transplant. She has to quit tobacco use prior to transplant and is working on that actively. She has had difficulty attending her appointments secondary to side effects from chemotherapy. She is interested in evaluation for home care/VNA. Will place referral. May also benefit from transportation to medical visits. #Anxiety and depression. Currently on Lexapro. #DCIS left breast. Status post resection 2021. Currently on tamoxifen. #GERD. Currently on famotidine, omeprazole and sucralfate. #Bradycardia. She had symptomatic bradycardia dyspnea and lightheadedness during chemotherapy. Chemotherapy was put on hold. She has been seeing cardiology and reports she was just cleared to resume chemotherapy and bone marrow transplant. Cardiology made recent changes to her medications. Currently on carvedilol, losartan, atorvastatin and aspirin. Case discussed with collaborating physician Thierno Pacheco who reviewed the assessment and plan. Chart, medications, labs, vital signs reviewed. Dictation was accomplished with the use of [employer] voice recognition software, prone to medical misidentifications and grammatical errors. This is unintentional and the practitioner does try to identify and correct these, but some could still be present. Please do not hesitate to contact practitioner for clarification. All questions answered to patients satisfaction. Patient verbalized understanding of diagnosis and treatments explained. To call sooner prior to next visit it any questions/concerns arise. 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 She is doing chemotherapy about once a month which has required her to be admitted to the hospital for a week at a time due to side effects she has had with the chemotherapy. She reports she was just contacted from [facility] today to say that they found a match for a bone marrow transplant. She has to quit tobacco use prior to transplant and is working on that actively. She has had difficulty attending her appointments secondary to side effects from chemotherapy. She is interested in evaluation for home care/VNA. Will place referral. May also benefit from transportation to medical visits. #Anxiety and depression. Currently on Lexapro. #DCIS left breast. Status post resection 2021. Currently on tamoxifen. #GERD. Currently on famotidine, omeprazole and sucralfate. #Bradycardia. She had symptomatic bradycardia dyspnea and lightheadedness during chemotherapy. Chemotherapy was put on hold. She has been seeing cardiology and reports she was just cleared to resume chemotherapy and bone marrow transplant. Cardiology made recent changes to her medications. Currently on carvedilol, losartan, atorvastatin and aspirin. Case discussed with collaborating physician Thierno Pacheco who reviewed the assessment and plan. Chart, medications, labs, vital signs reviewed. Dictation was accomplished with the use of [employer] voice recognition software, prone to medical misidentifications and grammatical errors. This is unintentional and the practitioner does try to identify and correct these, but some could still be present. Please do not hesitate to contact practitioner for clarification. All questions answered to patients satisfaction. Patient verbalized understanding of diagnosis and treatments explained. To call sooner prior to next visit it any questions/concerns arise. 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 She is doing chemotherapy about once a month which has required her to be admitted to the hospital for a week at a time due to side effects she has had with the chemotherapy. She reports she was just contacted from [facility] today to say that they found a match for a bone marrow transplant. She has to quit tobacco use prior to transplant and is working on that actively. She has had difficulty attending her appointments secondary to side effects from chemotherapy. She is interested in evaluation for home care/VNA. Will place referral. May also benefit from transportation to medical visits. #Anxiety and depression. Currently on Lexapro. #DCIS left breast. Status post resection 2021. Currently on tamoxifen. #GERD. Currently on famotidine, omeprazole and sucralfate. #Bradycardia. She had symptomatic bradycardia dyspnea and lightheadedness during chemotherapy. Chemotherapy was put on hold. She has been seeing cardiology and reports she was just cleared to resume chemotherapy and bone marrow transplant. Cardiology made recent changes to her medications. Currently on carvedilol, losartan, atorvastatin and aspirin. Case discussed with collaborating physician Thierno Pacheco who reviewed the assessment and plan. Chart, medications, labs, vital signs reviewed. Dictation was accomplished with the use of [employer] voice recognition software, prone to medical misidentifications and grammatical errors. This is unintentional and the practitioner does try to identify and correct these, but some could still be present. Please do not hesitate to contact practitioner for clarification. All questions answered to patients satisfaction. Patient verbalized understanding of diagnosis and treatments explained. To call sooner prior to next visit it any questions/concerns arise. 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 She has follow-up with [facility] next week and will need a bone marrow transplant. She reports she has stopped using cocaine and alcohol and continues to work on smoking cessation. She also has follow-up with Dr. Prescott next week as well. Discussed goals of care which she is still thinking about and unsure if she wants to proceed with all of these medical procedures. Discussed further support. She has also enrolled with [facility] but care has not started yet. She reports she was told she will need 24-hour care for 3 months post bone marrow transplant. #Anxiety and depression. Currently on Lexapro. Will monitor, consider increasing dose if needed. #DCIS left breast. Status post resection 2021. Currently on tamoxifen. #GERD. Currently on famotidine, omeprazole. #Polysubstance abuse. Reports she has not used cocaine in several months and stopped alcohol in the past week. Unfortunately she is still smoking 5 cigarettes a day. She has tried Chantix in the past. Reports nicotine patches were not covered by her insurance and is not interested in any other nicotine replacement at this time. Case discussed with collaborating physician Thierno Pacheco who reviewed the assessment and plan. Chart, medications, labs, vital signs reviewed. Dictation was accomplished with the use of [employer] voice recognition software, prone to medical misidentifications and grammatical errors. This is unintentional and the practitioner does try to identify and correct these, but some could still be present. Please do not hesitate to contact practitioner for clarification. All questions answered to patients satisfaction. Patient verbalized understanding of diagnosis and treatments explained. To call sooner prior to next visit it any questions/concerns arise. 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 She has follow-up with [facility] next week and will need a bone marrow transplant. She reports she has stopped using cocaine and alcohol and continues to work on smoking cessation. She also has follow-up with Dr. Prescott next week as well. Discussed goals of care which she is still thinking about and unsure if she wants to proceed with all of these medical procedures. Discussed further support. She has also enrolled with [facility] but care has not started yet. She reports she was told she will need 24-hour care for 3 months post bone marrow transplant. #Anxiety and depression. Currently on Lexapro. Will monitor, consider increasing dose if needed. #DCIS left breast. Status post resection 2021. Currently on tamoxifen. #GERD. Currently on famotidine, omeprazole. #Polysubstance abuse. Reports she has not used cocaine in several months and stopped alcohol in the past week. Unfortunately she is still smoking 5 cigarettes a day. She has tried Chantix in the past. Reports nicotine patches were not covered by her insurance and is not interested in any other nicotine replacement at this time. Case discussed with collaborating physician Thierno Pacheco who reviewed the assessment and plan. Chart, medications, labs, vital signs reviewed. Dictation was accomplished with the use of [employer] voice recognition software, prone to medical misidentifications and grammatical errors. This is unintentional and the practitioner does try to identify and correct these, but some could still be present. Please do not hesitate to contact practitioner for clarification. All questions answered to patients satisfaction. Patient verbalized understanding of diagnosis and treatments explained. To call sooner prior to next visit it any questions/concerns arise. 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 Bone marrow biopsy at [facility] has been put on hold. She was recently treated with antibiotics by Dr. Guillory for possible left lung infection and will need follow-up CAT scan which is being arranged by their office. She did restart chemo however did miss her dose on January 25 due to hospitalization. Advised to follow-up with Dr. Guillory's office. #Anxiety and depression. Currently on Lexapro. Will monitor, consider increasing dose if needed. #DCIS left breast. Status post resection 2021. Currently on tamoxifen. #GERD/gastritis. Recent hospitalization with abdominal pain concerning for gastritis. Labs are reassuring against pancreatitis. Currently on famotidine, omeprazole and sucralfate. #Polysubstance abuse. Reports she has not used cocaine in several months and stopped alcohol since her hospitalization. Discussed at length and strongly encouraged to remain off of alcohol. #Left knee pain. Acute left knee pain in the past week no known injury. Swelling and warmth on exam. Uric acid level was normal during recent hospitalization. Denies any fever. Will get x-ray today and check follow-up labs including CBC and uric acid level. May need more urgent visit with Ortho. Discussed signs and symptoms to monitor for. We did discuss possibility of prednisone if uric acid level is elevated. Case discussed with collaborating physician Charline Pacheco who reviewed the assessment and plan. Chart, medications, labs, vital signs reviewed. Dictation was accomplished with the use of [employer] voice recognition software, prone to medical misidentifications and grammatical errors. This is unintentional and the practitioner does try to identify and correct these, but some could still be present. Please do not hesitate to contact practitioner for clarification. All questions answered to patients satisfaction. Patient verbalized understanding of diagnosis and treatments explained. To call sooner prior to next visit it any questions/concerns arise. 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 Bone marrow biopsy at [facility] has been put on hold. She was recently treated with antibiotics by Dr. Guillory for possible left lung infection and will need follow-up CAT scan which is being arranged by their office. She did restart chemo however did miss her dose on January 25 due to hospitalization. Advised to follow-up with Dr. Guillory's office. #Anxiety and depression. Currently on Lexapro. Will monitor, consider increasing dose if needed. #DCIS left breast. Status post resection 2021. Currently on tamoxifen. #GERD/gastritis. Recent hospitalization with abdominal pain concerning for gastritis. Labs are reassuring against pancreatitis. Currently on famotidine, omeprazole and sucralfate. #Polysubstance abuse. Reports she has not used cocaine in several months and stopped alcohol since her hospitalization. Discussed at length and strongly encouraged to remain off of alcohol. #Left knee pain. Acute left knee pain in the past week no known injury. Swelling and warmth on exam. Uric acid level was normal during recent hospitalization. Denies any fever. Will get x-ray today and check follow-up labs including CBC and uric acid level. May need more urgent visit with Ortho. Discussed signs and symptoms to monitor for. We did discuss possibility of prednisone if uric acid level is elevated. Case discussed with collaborating physician Charline Pacheco who reviewed the assessment and plan. Chart, medications, labs, vital signs reviewed. Dictation was accomplished with the use of [employer] voice recognition software, prone to medical misidentifications [...] next visit it any questions/concerns arise. 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 Bone marrow biopsy at [facility] has been put on hold. She [...] Dictation was accomplished with the use of [employer] voice recognition software, prone to medical misidentifications [...] by Dr. Guillory. Bone marrow biopsy at [facility] has been put on hold. She [...] Dictation was accomplished with the use of [employer] voice recognition software, prone to medical misidentifications [...] by Dr. Guillory. Bone marrow biopsy at [facility] has been put on hold. She [...] Dictation was accomplished with the use of [employer] voice recognition software, prone to medical misidentifications and grammatical errors. This is unintentional and the practitioner does try to identify and correct these, but some could still be present. Please do not hesitate to contact practitioner for clarification. All questions answered to patients satisfaction. Patient verbalized understanding of diagnosis and treatments explained. To call sooner prior to next visit it any questions/concerns arise. 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 Bone marrow biopsy at [facility] has been put on hold. She was recently treated with antibiotics by Dr. Guillory for possible left lung infection and will need follow-up CAT scan which is being arranged by their office. She did restart chemo however did miss her dose on January 25 due to hospitalization. Advised to follow-up with Dr. Guillory's office. #Anxiety and depression. Currently on Lexapro. Will monitor, consider increasing dose if needed. #DCIS left breast. Status post resection 2021. Currently on tamoxifen. #GERD/gastritis. Recent hospitalization with abdominal pain concerning for gastritis. Labs are reassuring against pancreatitis. Currently on famotidine, omeprazole and sucralfate. #Polysubstance abuse. Reports she has not used cocaine in several months and stopped alcohol since her hospitalization. Discussed at length and strongly encouraged to remain off of alcohol. #Left knee pain. Acute left knee pain in the past week no known injury. Swelling and warmth on exam. Uric acid level was normal during recent hospitalization. Denies any fever. Will get x-ray today and check follow-up labs including CBC and uric acid level. May need more urgent visit with Ortho. Discussed signs and symptoms to monitor for. We did discuss possibility of prednisone if uric acid level is elevated. Case discussed with collaborating physician Charline Pacheco who reviewed the assessment and plan. Chart, medications, labs, vital signs reviewed. Dictation was accomplished with the use of [employer] voice recognition software, prone to medical misidentifications and grammatical errors. This is unintentional and the practitioner does try to identify and correct these, but some could still be present. Please do not hesitate to contact practitioner for clarification. All questions answered to patients satisfaction. Patient verbalized understanding of diagnosis and treatments explained. To call sooner prior to next visit it any questions/concerns arise. 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 She has follow-up with [facility] next week and will need a bone marrow transplant. She reports she has stopped using cocaine and alcohol and continues to work on smoking cessation. She also has follow-up with Dr. Prescott next week as well. Discussed goals of care which she is still thinking about and unsure if she wants to proceed with all of these medical procedures. Discussed further support. She has also enrolled with [facility] but care has not started yet. She reports she was told she will need 24-hour care for 3 months post bone marrow transplant. #Anxiety and depression. Currently on Lexapro. Will monitor, consider increasing dose if needed. #DCIS left breast. Status post resection 2021. Currently on tamoxifen. #GERD. Currently on famotidine, omeprazole. #Polysubstance abuse. Reports she has not used cocaine in several months and stopped alcohol in the past week. Unfortunately she is still smoking 5 cigarettes a day. She has tried Chantix in the past. Reports nicotine patches were not covered by her insurance and is not interested in any other nicotine replacement at this time. Case discussed with collaborating physician Thierno Pacheco who reviewed the assessment and plan. Chart, medications, labs, vital signs reviewed. Dictation was accomplished with the use of [employer] voice recognition software, prone to medical misidentifications and grammatical errors. This is unintentional and the practitioner does try to identify and correct these, but some could still be present. Please do not hesitate to contact practitioner for clarification. All questions answered to patients satisfaction. Patient verbalized understanding of diagnosis and treatments explained. To call sooner prior to next visit it any questions/concerns arise. 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 She is doing chemotherapy about once a month which has required her to be admitted to the hospital for a week at a time due to side effects she has had with the chemotherapy. She reports she was just contacted from [facility] today to say that they found a match for a bone marrow transplant. She has to quit tobacco use prior to transplant and is working on that actively. She has had difficulty attending her appointments secondary to side effects from chemotherapy. She is interested in evaluation for home care/VNA. Will place referral. May also benefit from transportation to medical visits. #Anxiety and depression. Currently on Lexapro. #DCIS left breast. Status post resection 2021. Currently on tamoxifen. #GERD. Currently on famotidine, omeprazole and sucralfate. #Bradycardia. She had symptomatic bradycardia dyspnea and lightheadedness during chemotherapy. Chemotherapy was put on hold. She has been seeing cardiology and reports she was just cleared to resume chemotherapy and bone marrow transplant. Cardiology made recent changes to her medications. Currently on carvedilol, losartan, atorvastatin and aspirin. Case discussed with collaborating physician Thierno Pacheco who reviewed the assessment and plan. Chart, medications, labs, vital signs reviewed. Dictation was accomplished with the use of [employer] voice recognition software, prone to medical misidentifications and grammatical errors. This is unintentional and the practitioner does try to identify and correct these, but some could still be present. Please do not hesitate to contact practitioner for clarification. All questions answered to patients satisfaction. Patient verbalized understanding of diagnosis and treatments explained. To call sooner prior to next visit it any questions/concerns arise. 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 She is doing chemotherapy about once a month which has required her to be admitted to the hospital for a week at a time due to side effects she has had with the chemotherapy. She reports she was just contacted from [facility] today to say that they found a match for a bone marrow transplant. She has to quit tobacco use prior to transplant and is working on that actively. She has had difficulty attending her appointments secondary to side effects from chemotherapy. She is interested in evaluation for home care/VNA. Will place referral. May also benefit from transportation to medical visits. #Anxiety and depression. Currently on Lexapro. #DCIS left breast. Status post resection 2021. Currently on tamoxifen. #GERD. Currently on famotidine, omeprazole and sucralfate. #Bradycardia. She had symptomatic bradycardia dyspnea and lightheadedness during chemotherapy. Chemotherapy was put on hold. She has been seeing cardiology and reports she was just cleared to resume chemotherapy and bone marrow transplant. Cardiology made recent changes to her medications. Currently on carvedilol, losartan, atorvastatin and aspirin. Case discussed with collaborating physician Thierno Pacheco who reviewed the assessment and plan. Chart, medications, labs, vital signs reviewed. Dictation was accomplished with the use of [employer] voice recognition software, prone to medical misidentifications and grammatical errors. This is unintentional and the practitioner does try to identify and correct these, but some could still be present. Please do not hesitate to contact practitioner for clarification. All questions answered to patients satisfaction. Patient verbalized understanding of diagnosis and treatments explained. To call sooner prior to next visit it any questions/concerns arise. 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 She is doing chemotherapy about once a month which has required her to be admitted to the hospital for a week at a time due to side effects she has had with the chemotherapy. She reports she was just contacted from [facility] today to say that they found a match for a bone marrow transplant. She has to quit tobacco use prior to transplant and is working on that actively. She has had difficulty attending her appointments secondary to side effects from chemotherapy. She is interested in evaluation for home care/VNA. Will place referral. May also benefit from transportation to medical visits. #Anxiety and depression. Currently on Lexapro. #DCIS left breast. Status post resection 2021. Currently on tamoxifen. #GERD. Currently on famotidine, omeprazole and sucralfate. #Bradycardia. She had symptomatic bradycardia dyspnea and lightheadedness during chemotherapy. Chemotherapy was put on hold. She has been seeing cardiology and reports she was just cleared to resume chemotherapy and bone marrow transplant. Cardiology made recent changes to her medications. Currently on carvedilol, losartan, atorvastatin and aspirin. Case discussed with collaborating physician Thierno Pacheco who reviewed the assessment and plan. Chart, medications, labs, vital signs reviewed. Dictation was accomplished with the use of [employer] voice recognition software, prone to medical misidentifications and grammatical errors. This is unintentional and the practitioner does try to identify and correct these, but some could still be present. Please do not hesitate to contact practitioner for clarification. All questions answered to patients satisfaction. Patient verbalized understanding of diagnosis and treatments explained. To call sooner prior to next visit it any questions/concerns arise. 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 She is doing chemotherapy about once a month which has required her to be admitted to the hospital for a week at a time due to side effects she has had with the chemotherapy. She reports she was just contacted from [facility] today to say that they found a match for a bone marrow transplant. She has to quit tobacco use prior to transplant and is working on that actively. She has had difficulty attending her appointments secondary to side effects from chemotherapy. She is interested in evaluation for home care/VNA. Will place referral. May also benefit from transportation to medical visits. #Anxiety and depression. Currently on Lexapro. #DCIS left breast. Status post resection 2021. Currently on tamoxifen. #GERD. Currently on famotidine, omeprazole and sucralfate. #Bradycardia. She had symptomatic bradycardia dyspnea and lightheadedness during chemotherapy. Chemotherapy was put on hold. She has been seeing cardiology and reports she was just cleared to resume chemotherapy and bone marrow transplant. Cardiology made recent changes to her medications. Currently on carvedilol, losartan, atorvastatin and aspirin. Case discussed with collaborating physician Thierno Pacheco who reviewed the assessment and plan. Chart, medications, labs, vital signs reviewed. Dictation was accomplished with the use of [employer] voice recognition software, prone to medical misidentifications and grammatical errors. This is unintentional and the practitioner does try to identify and correct these, but some could still be present. Please do not hesitate to contact practitioner for clarification. All questions answered to patients satisfaction. Patient verbalized understanding of diagnosis and treatments explained. To call sooner prior to next visit it any questions/concerns arise. 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 She has follow-up with [facility] next week and will need a bone marrow transplant. She reports she has stopped using cocaine and alcohol and continues to work on smoking cessation. She also has follow-up with Dr. Prescott next week as well. Discussed goals of care which she is still thinking about and unsure if she wants to proceed with all of these medical procedures. Discussed further support. She has also enrolled with [facility] but care has not started yet. She reports she was told she will need 24-hour care for 3 months post bone marrow transplant. #Anxiety and depression. Currently on Lexapro. Will monitor, consider increasing dose if needed. #DCIS left breast. Status post resection 2021. Currently on tamoxifen. #GERD. Currently on famotidine, omeprazole. #Polysubstance abuse. Reports she has not used cocaine in several months and stopped alcohol in the past week. Unfortunately she is still smoking 5 cigarettes a day. She has tried Chantix in the past. Reports nicotine patches were not covered by her insurance and is not interested in any other nicotine replacement at this time. Case discussed with collaborating physician Thierno Pacheco who reviewed the assessment and plan. Chart, medications, labs, vital signs reviewed. Dictation was accomplished with the use of [employer] voice recognition software, prone to medical misidentifications and grammatical errors. This is unintentional and the practitioner does try to identify and correct these, but some could still be present. Please do not hesitate to contact practitioner for clarification. All questions answered to patients satisfaction. Patient verbalized understanding of diagnosis and treatments explained. To call sooner prior to next visit it any questions/concerns arise. 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 Bone marrow biopsy at [facility] has been put on hold. She was recently treated with antibiotics by Dr. Guillory for possible left lung infection and will need follow-up CAT scan which is being arranged by their office. She did restart chemo however did miss her dose on January 25 due to hospitalization. Advised to follow-up with Dr. Guillory's office. #Anxiety and depression. Currently on Lexapro. Will monitor, consider increasing dose if needed. #DCIS left breast. Status post resection 2021. Currently on tamoxifen. #GERD/gastritis. Recent hospitalization with abdominal pain concerning for gastritis. Labs are reassuring against pancreatitis. Currently on famotidine, omeprazole and sucralfate. #Polysubstance abuse. Reports she has not used cocaine in several months and stopped alcohol since her hospitalization. Discussed at length and strongly encouraged to remain off of alcohol. #Left knee pain. Acute left knee pain in the past week no known injury. Swelling and warmth on exam. Uric acid level was normal during recent hospitalization. Denies any fever. Will get x-ray today and check follow-up labs including CBC and uric acid level. May need more urgent visit with Ortho. Discussed signs and symptoms to monitor for. We did discuss possibility of prednisone if uric acid level is elevated. Case discussed with collaborating physician Charline Pacheco who reviewed the assessment and plan. Chart, medications, labs, vital signs reviewed. Dictation was accomplished with the use of [employer] voice recognition software, prone to medical misidentifications [...] by Dr. Guillory. Bone marrow biopsy at [facility] has been put on hold. She [...] Dictation was accomplished with the use of [employer] voice recognition software, prone to medical misidentifications [...] by Dr. Guillory. Bone marrow biopsy at [facility] has been put on hold. She [...] Dictation was accomplished with the use of [employer] voice recognition software, prone to medical misidentifications and grammatical errors. This is unintentional and the practitioner does try to identify and correct these, but some could still be present. Please do not hesitate to contact practitioner for clarification. All questions answered to patients satisfaction. Patient verbalized understanding of diagnosis and treatments explained. To call sooner prior to next visit it any questions/concerns arise. 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 She has follow-up with [facility] next week and will need a bone marrow transplant. She reports she has stopped using cocaine and alcohol and continues to work on smoking cessation. She also has follow-up with Dr. Prescott next week as well. Discussed goals of care which she is still thinking about and unsure if she wants to proceed with all of these medical procedures. Discussed further support. She has also enrolled with [facility] but care has not started yet. She reports she was told she will need 24-hour care for 3 months post bone marrow transplant. #Anxiety and depression. Currently on Lexapro. Will monitor, consider increasing dose if needed. #DCIS left breast. Status post resection 2021. Currently on tamoxifen. #GERD. Currently on famotidine, omeprazole. #Polysubstance abuse. Reports she has not used cocaine in several months and stopped alcohol in the past week. Unfortunately she is still smoking 5 cigarettes a day. She has tried Chantix in the past. Reports nicotine patches were not covered by her insurance and is not interested in any other nicotine replacement at this time. Case discussed with collaborating physician Thierno Pacheco who reviewed the assessment and plan. Chart, medications, labs, vital signs reviewed. Dictation was accomplished with the use of [employer] voice recognition software, prone to medical misidentifications and grammatical errors. This is unintentional and the practitioner does try to identify and correct these, but some could still be present. Please do not hesitate to contact practitioner for clarification. All questions answered to patients satisfaction. Patient verbalized understanding of diagnosis and treatments explained. To call sooner prior to next visit it any questions/concerns arise. 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 Bone marrow biopsy at [facility] has been put on hold. She was recently treated with antibiotics by Dr. Guillory for possible left lung infection and will need follow-up CAT scan which is being arranged by their office. She did restart chemo however did miss her dose on January 25 due to hospitalization. Advised to follow-up with Dr. Guillory's office. #Anxiety and depression. Currently on Lexapro. Will monitor, consider increasing dose if needed. #DCIS left breast. Status post resection 2021. Currently on tamoxifen. #GERD/gastritis. Recent hospitalization with abdominal pain concerning for gastritis. Labs are reassuring against pancreatitis. Currently on famotidine, omeprazole and sucralfate. #Polysubstance abuse. Reports she has not used cocaine in several months and stopped alcohol since her hospitalization. Discussed at length and strongly encouraged to remain off of alcohol. #Left knee pain. Acute left knee pain in the past week no known injury. Swelling and warmth on exam. Uric acid level was normal during recent hospitalization. Denies any fever. Will get x-ray today and check follow-up labs including CBC and uric acid level. May need more urgent visit with Ortho. Discussed signs and symptoms to monitor for. We did discuss possibility of prednisone if uric acid level is elevated. Case discussed with collaborating physician Charline Pacheco who reviewed the assessment and plan. Chart, medications, labs, vital signs reviewed. Dictation was accomplished with the use of [employer] voice recognition software, prone to medical misidentifications and grammatical errors. This is unintentional and the practitioner does try to identify and correct these, but some could still be present. Please do not hesitate to contact practitioner for clarification. All questions answered to patients satisfaction. Patient verbalized understanding of diagnosis and treatments explained. To call sooner prior to next visit it any questions/concerns arise. 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 She is doing chemotherapy about once a month which has required her to be admitted to the hospital for a week at a time due to side effects she has had with the chemotherapy. She reports she was just contacted from [facility] today to say that they found a match for a bone marrow transplant. She has to quit tobacco use prior to transplant and is working on that actively. She has had difficulty attending her appointments secondary to side effects from chemotherapy. She is interested in evaluation for home care/VNA. Will place referral. May also benefit from transportation to medical visits. #Anxiety and depression. Currently on Lexapro. #DCIS left breast. Status post resection 2021. Currently on tamoxifen. #GERD. Currently on famotidine, omeprazole and sucralfate. #Bradycardia. She had symptomatic bradycardia dyspnea and lightheadedness during chemotherapy. Chemotherapy was put on hold. She has been seeing cardiology and reports she was just cleared to resume chemotherapy and bone marrow transplant. Cardiology made recent changes to her medications. Currently on carvedilol, losartan, atorvastatin and aspirin. Case discussed with collaborating physician Thierno Pacheco who reviewed the assessment and plan. Chart, medications, labs, vital signs reviewed. Dictation was accomplished with the use of [employer] voice recognition software, prone to medical misidentifications and grammatical errors. This is unintentional and the practitioner does try to identify and correct these, but some could still be present. Please do not hesitate to contact practitioner for clarification. All questions answered to patients satisfaction. Patient verbalized understanding of diagnosis and treatments explained. To call sooner prior to next visit it any questions/concerns arise. 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 She is doing chemotherapy about once a month which has required her to be admitted to the hospital for a week at a time due to side effects she has had with the chemotherapy. She reports she was just contacted from [facility] today to say that they found a match for a bone marrow transplant. She has to quit tobacco use prior to transplant and is working on that actively. She has had difficulty attending her appointments secondary to side effects from chemotherapy. She is interested in evaluation for home care/VNA. Will place referral. May also benefit from transportation to medical visits. #Anxiety and depression. Currently on Lexapro. #DCIS left breast. Status post resection 2021. Currently on tamoxifen. #GERD. Currently on famotidine, omeprazole and sucralfate. #Bradycardia. She had symptomatic bradycardia dyspnea and lightheadedness during chemotherapy. Chemotherapy was put on hold. She has been seeing cardiology and reports she was just cleared to resume chemotherapy and bone marrow transplant. Cardiology made recent changes to her medications. Currently on carvedilol, losartan, atorvastatin and aspirin. Case discussed with collaborating physician Thierno Pacheco who reviewed the assessment and plan. Chart, medications, labs, vital signs reviewed. Dictation was accomplished with the use of [employer] voice recognition software, prone to medical misidentifications and grammatical errors. This is unintentional and the practitioner does try to identify and correct these, but some could still be present. Please do not hesitate to contact practitioner for clarification. All questions answered to patients satisfaction. Patient verbalized understanding of diagnosis and treatments explained. To call sooner prior to next visit it any questions/concerns arise. 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 She has follow-up with [facility] next week and will need a bone marrow transplant. She reports she has stopped using cocaine and alcohol and continues to work on smoking cessation. She also has follow-up with Dr. Prescott next week as well. Discussed goals of care which she is still thinking about and unsure if she wants to proceed with all of these medical procedures. Discussed further support. She has also enrolled with [facility] but care has not started yet. She reports she was told she will need 24-hour care for 3 months post bone marrow transplant. #Anxiety and depression. Currently on Lexapro. Will monitor, consider increasing dose if needed. #DCIS left breast. Status post resection 2021. Currently on tamoxifen. #GERD. Currently on famotidine, omeprazole. #Polysubstance abuse. Reports she has not used cocaine in several months and stopped alcohol in the past week. Unfortunately she is still smoking 5 cigarettes a day. She has tried Chantix in the past. Reports nicotine patches were not covered by her insurance and is not interested in any other nicotine replacement at this time. Case discussed with collaborating physician Thierno Pacheco who reviewed the assessment and plan. Chart, medications, labs, vital signs reviewed. Dictation was accomplished with the use of [employer] voice recognition software, prone to medical misidentifications and grammatical errors. This is unintentional and the practitioner does try to identify and correct these, but some could still be present. Please do not hesitate to contact practitioner for clarification. All questions answered to patients satisfaction. Patient verbalized understanding of diagnosis and treatments explained. To call sooner prior to next visit it any questions/concerns arise. 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 She is doing chemotherapy about once a month which has required her to be admitted to the hospital for a week at a time due to side effects she has had with the chemotherapy. She reports she was just contacted from [facility] today to say that they found a match for a bone marrow transplant. She has to quit tobacco use prior to transplant and is working on that actively. She has had difficulty attending her appointments secondary to side effects from chemotherapy. She is interested in evaluation for home care/VNA. Will place referral. May also benefit from transportation to medical visits. #Anxiety and depression. Currently on Lexapro. #DCIS left breast. Status post resection 2021. Currently on tamoxifen. #GERD. Currently on famotidine, omeprazole and sucralfate. #Bradycardia. She had symptomatic bradycardia dyspnea and lightheadedness during chemotherapy. Chemotherapy was put on hold. She has been seeing cardiology and reports she was just cleared to resume chemotherapy and bone marrow transplant. Cardiology made recent changes to her medications. Currently on carvedilol, losartan, atorvastatin and aspirin. Case discussed with collaborating physician Thierno Pacheco who reviewed the assessment and plan. Chart, medications, labs, vital signs reviewed. Dictation was accomplished with the use of [employer] voice recognition software, prone to medical misidentifications and grammatical errors. This is unintentional and the practitioner does try to identify and correct these, but some could still be present. Please do not hesitate to contact practitioner for clarification. All questions answered to patients satisfaction. Patient verbalized understanding of diagnosis and treatments explained. To call sooner prior to next visit it any questions/concerns arise. 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 She is doing chemotherapy about once a month which has required her to be admitted to the hospital for a week at a time due to side effects she has had with the chemotherapy. She reports she was just contacted from [facility] today to say that they found a match for a bone marrow transplant. She has to quit tobacco use prior to transplant and is working on that actively. She has had difficulty attending her appointments secondary to side effects from chemotherapy. She is interested in evaluation for home care/VNA. Will place referral. May also benefit from transportation to medical visits. #Anxiety and depression. Currently on Lexapro. #DCIS left breast. Status post resection 2021. Currently on tamoxifen. #GERD. Currently on famotidine, omeprazole and sucralfate. #Bradycardia. She had symptomatic bradycardia dyspnea and lightheadedness during chemotherapy. Chemotherapy was put on hold. She has been seeing cardiology and reports she was just cleared to resume chemotherapy and bone marrow transplant. Cardiology made recent changes to her medications. Currently on carvedilol, losartan, atorvastatin and aspirin. Case discussed with collaborating physician Thierno Pacheco who reviewed the assessment and plan. Chart, medications, labs, vital signs reviewed. Dictation was accomplished with the use of [employer] voice recognition software, prone to medical misidentifications and grammatical errors. This is unintentional and the practitioner does try to identify and correct these, but some could still be present. Please do not hesitate to contact practitioner for clarification. All questions answered to patients satisfaction. Patient verbalized understanding of diagnosis and treatments explained. To call sooner prior to next visit it any questions/concerns arise. 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 Bone marrow biopsy at [facility] has been put on hold. She was recently treated with antibiotics by Dr. Guillory for possible left lung infection and will need follow-up CAT scan which is being arranged by their office. She did restart chemo however did miss her dose on January 25 due to hospitalization. Advised to follow-up with Dr. Guillory's office. #Anxiety and depression. Currently on Lexapro. Will monitor, consider increasing dose if needed. #DCIS left breast. Status post resection 2021. Currently on tamoxifen. #GERD/gastritis. Recent hospitalization with abdominal pain concerning for gastritis. Labs are reassuring against pancreatitis. Currently on famotidine, omeprazole and sucralfate. #Polysubstance abuse. Reports she has not used cocaine in several months and stopped alcohol since her hospitalization. Discussed at length and strongly encouraged to remain off of alcohol. #Left knee pain. Acute left knee pain in the past week no known injury. Swelling and warmth on exam. Uric acid level was normal during recent hospitalization. Denies any fever. Will get x-ray today and check follow-up labs including CBC and uric acid level. May need more urgent visit with Ortho. Discussed signs and symptoms to monitor for. We did discuss possibility of prednisone if uric acid level is elevated. Case discussed with collaborating physician Charline Pacheco who reviewed the assessment and plan. Chart, medications, labs, vital signs reviewed. Dictation was accomplished with the use of [employer] voice recognition software, prone to medical misidentifications [...] by Dr. Guillory. Bone marrow biopsy at [facility] has been put on hold. She [...] Dictation was accomplished with the use of [employer] voice recognition software, prone to medical misidentifications [...] by Dr. Guillory. Bone marrow biopsy at [facility] has been put on hold. She [...] Dictation was accomplished with the use of [employer] voice recognition software, prone to medical misidentifications and grammatical errors. This is unintentional and the practitioner does try to identify and correct these, but some could still be present. Please do not hesitate to contact practitioner for clarification. All questions answered to patients satisfaction. Patient verbalized understanding of diagnosis and treatments explained. To call sooner prior to next visit it any questions/concerns arise. 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 Bone marrow biopsy at [facility] has been put on hold. She was recently treated with antibiotics by Dr. Guillory for possible left lung infection and will need follow-up CAT scan which is being arranged by their office. She did restart chemo however did miss her dose on January 25 due to hospitalization. Advised to follow-up with Dr. Guillory's office. #Anxiety and depression. Currently on Lexapro. Will monitor, consider increasing dose if needed. #DCIS left breast. Status post resection 2021. Currently on tamoxifen. #GERD/gastritis. Recent hospitalization with abdominal pain concerning for gastritis. Labs are reassuring against pancreatitis. Currently on famotidine, omeprazole and sucralfate. #Polysubstance abuse. Reports she has not used cocaine in several months and stopped alcohol since her hospitalization. Discussed at length and strongly encouraged to remain off of alcohol. #Left knee pain. Acute left knee pain in the past week no known injury. Swelling and warmth on exam. Uric acid level was normal during recent hospitalization. Denies any fever. Will get x-ray today and check follow-up labs including CBC and uric acid level. May need more urgent visit with Ortho. Discussed signs and symptoms to monitor for. We did discuss possibility of prednisone if uric acid level is elevated. Case discussed with collaborating physician Charline Pacheco who reviewed the assessment and plan. Chart, medications, labs, vital signs reviewed. Dictation was accomplished with the use of [employer] voice recognition software, prone to medical misidentifications and grammatical errors. This is unintentional and the practitioner does try to identify and correct these, but some could still be present. Please do not hesitate to contact practitioner for clarification. All questions answered to patients satisfaction. Patient verbalized understanding of diagnosis and treatments explained. To call sooner prior to next visit it any questions/concerns arise. 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 She is doing chemotherapy about once a month which has required her to be admitted to the hospital for a week at a time due to side effects she has had with the chemotherapy. She reports she was just contacted from [facility] today to say that they found a match for a bone marrow transplant. She has to quit tobacco use prior to transplant and is working on that actively. She has had difficulty attending her appointments secondary to side effects from chemotherapy. She is interested in evaluation for home care/VNA. Will place referral. May also benefit from transportation to medical visits. #Anxiety and depression. Currently on Lexapro. #DCIS left breast. Status post resection 2021. Currently on tamoxifen. #GERD. Currently on famotidine, omeprazole and sucralfate. #Bradycardia. She had symptomatic bradycardia dyspnea and lightheadedness during chemotherapy. Chemotherapy was put on hold. She has been seeing cardiology and reports she was just cleared to resume chemotherapy and bone marrow transplant. Cardiology made recent changes to her medications. Currently on carvedilol, losartan, atorvastatin and aspirin. Case discussed with collaborating physician Thierno Pacheco who reviewed the assessment and plan. Chart, medications, labs, vital signs reviewed. Dictation was accomplished with the use of [employer] voice recognition software, prone to medical misidentifications and grammatical errors. This is unintentional and the practitioner does try to identify and correct these, but some could still be present. Please do not hesitate to contact practitioner for clarification. All questions answered to patients satisfaction. Patient verbalized understanding of diagnosis and treatments explained. To call sooner prior to next visit it any questions/concerns arise. 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 She has follow-up with [facility] next week and will need a bone marrow transplant. She reports she has stopped using cocaine and alcohol and continues to work on smoking cessation. She also has follow-up with Dr. Prescott next week as well. Discussed goals of care which she is still thinking about and unsure if she wants to proceed with all of these medical procedures. Discussed further support. She has also enrolled with [facility] but care has not started yet. She reports she was told she will need 24-hour care for 3 months post bone marrow transplant. #Anxiety and depression. Currently on Lexapro. Will monitor, consider increasing dose if needed. #DCIS left breast. Status post resection 2021. Currently on tamoxifen. #GERD. Currently on famotidine, omeprazole. #Polysubstance abuse. Reports she has not used cocaine in several months and stopped alcohol in the past week. Unfortunately she is still smoking 5 cigarettes a day. She has tried Chantix in the past. Reports nicotine patches were not covered by her insurance and is not interested in any other nicotine replacement at this time. Case discussed with collaborating physician Thierno Pacheco who reviewed the assessment and plan. Chart, medications, labs, vital signs reviewed. Dictation was accomplished with the use of [employer] voice recognition software, prone to medical misidentifications and grammatical errors. This is unintentional and the practitioner does try to identify and correct these, but some could still be present. Please do not hesitate to contact practitioner for clarification. All questions answered to patients satisfaction. Patient verbalized understanding of diagnosis and treatments explained. To call sooner prior to next visit it any questions/concerns arise. 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 She is doing chemotherapy about once a month which has required her to be admitted to the hospital for a week at a time due to side effects she has had with the chemotherapy. She reports she was just contacted from [facility] today to say that they found a match for a bone marrow transplant. She has to quit tobacco use prior to transplant and is working on that actively. She has had difficulty attending her appointments secondary to side effects from chemotherapy. She is interested in evaluation for home care/VNA. Will place referral. May also benefit from transportation to medical visits. #Anxiety and depression. Currently on Lexapro. #DCIS left breast. Status post resection 2021. Currently on tamoxifen. #GERD. Currently on famotidine, omeprazole and sucralfate. #Bradycardia. She had symptomatic bradycardia dyspnea and lightheadedness during chemotherapy. Chemotherapy was put on hold. She has been seeing cardiology and reports she was just cleared to resume chemotherapy and bone marrow transplant. Cardiology made recent changes to her medications. Currently on carvedilol, losartan, atorvastatin and aspirin. Case discussed with collaborating physician Thierno Pacheco who reviewed the assessment and plan. Chart, medications, labs, vital signs reviewed. Dictation was accomplished with the use of [employer] voice recognition software, prone to medical misidentifications and grammatical errors. This is unintentional and the practitioner does try to identify and correct these, but some could still be present. Please do not hesitate to contact practitioner for clarification. All questions answered to patients satisfaction. Patient verbalized understanding of diagnosis and treatments explained. To call sooner prior to next visit it any questions/concerns arise. 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 Bone marrow biopsy at [facility] has been put on hold. She was recently treated with antibiotics by Dr. Guillory for possible left lung infection and will need follow-up CAT scan which is being arranged by their office. She did restart chemo however did miss her dose on January 25 due to hospitalization. Advised to follow-up with Dr. Guillory's office. #Anxiety and depression. Currently on Lexapro. Will monitor, consider increasing dose if needed. #DCIS left breast. Status post resection 2021. Currently on tamoxifen. #GERD/gastritis. Recent hospitalization with abdominal pain concerning for gastritis. Labs are reassuring against pancreatitis. Currently on famotidine, omeprazole and sucralfate. #Polysubstance abuse. Reports she has not used cocaine in several months and stopped alcohol since her hospitalization. Discussed at length and strongly encouraged to remain off of alcohol. #Left knee pain. Acute left knee pain in the past week no known injury. Swelling and warmth on exam. Uric acid level was normal during recent hospitalization. Denies any fever. Will get x-ray today and check follow-up labs including CBC and uric acid level. May need more urgent visit with Ortho. Discussed signs and symptoms to monitor for. We did discuss possibility of prednisone if uric acid level is elevated. Case discussed with collaborating physician Cahrline Pacheco who reviewed the assessment and plan. Chart, medications, labs, vital signs reviewed. Dictation was accomplished with the use of [employer] voice recognition software, prone to medical misidentifications [...] by Dr. Guillory. Bone marrow biopsy at [facility] has been put on hold. She [...] Dictation was accomplished with the use of [employer] voice recognition software, prone to medical misidentifications [...] it any questions/concerns arise. PLAN OF TREATMENT Pending Test Test Name Order Date Ultrasound : Breast, left 08/02/2019 X ray : Knee, right 2 views 08/19/2022 TSH 07/17/2020 Lipid Panel 07/17/2020 Lipid Panel 11/17/2018 Comp. Metabolic Panel (14) 11/17/2018 Comp. Metabolic Panel (14) 07/17/2020 CBC 07/17/2020 CBC 11/17/2018 Ultrasound : Kidneys and Bladder 019 Urinalysis 07/17/2020 Urinalysis 11/17/2018 EKG 08/19/2022 25OH VITAMIN D 01/21/2021 CBC (COMPLETE BLOOD COUNT) 01/21/2021 CBC (COMPLETE BLOOD COUNT) 08/16/2018 CBC (COMPLETE BLOOD COUNT) 02/08/2019 COMPREHENSIVE METABOLIC PANEL 08/16/2018 COMPREHENSIVE METABOLIC PANEL 02/08/2019 COMPREHENSIVE METABOLIC PANEL 01/21/2021 LIPID PANEL 01/21/2021 LIPID PANEL 08/16/2018 LIPID PANEL 02/08/2019 TSH 01/21/2021 URINALYSIS, COMPLETE 02/08/2019 XR Knee 3 Views LT 01/28/2024 PT/INR 08/19/2022 ESR 10/02/2022 COMPREHENSIVE METABOLIC PANEL 08/19/2022 URIC ACID 01/28/2024 CBC (INCLUDES DIFF/PLT) 01/28/2024 CBC (INCLUDES DIFF/PLT) 08/19/2022 URINALYSIS, COMPLETE 01/23/2022 HEMOGLOBIN A1c 08/19/2022 HEMOGLOBIN A1c 01/22/2022 COMPLETE URINALYSIS 01/21/2021 Next Appt Details Provider Name:Oksana Gottlieb, 0 04/13/2024 02:00:00 PM, [address] [facility], [facility] [address], [place], [address], Insurance Providers Payer Name Payer Address Payer Phone Subscriber Number Group Number Insured Name Patient Relationship to Insured Coverage Start Date Coverage End Date [employer] or Options [address] [employer] [facility] [id number] MICHELE ALFORD Self - patient is the insured MEDICAL (GENERAL) HISTORY Medical History History ICD Code Asthma, unspecified asthma s everity, unspecified whether complicated, unspecified whether persistent J45.909 Depression, unspecified F32.A Bipolar depression F31.9 Hyperlipidemia, unspecified E78.5 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 07 Migraine, unspecified, not intractable, without status migrainosus G43.909 Insomnia, unspecified G47.00 History of breast cancer Z85.3 Spinal stenosis, lumbosacral region M48. 07 Cocaine abuse F14.10 Lymphoma, unspecified body region, unspe cified lymphoma type C85.90 Surgical History Surgery Date(Month/Year) breast augmentation tubal ligation back surgery Lumpectomy 2021 Hospitalization History Reason Date(Month/Year) Epigatric abd pain/intractable pain 01/15
== END 2024-03-08 11:18 | disposition home or self-care (01) ==
PROVIDERS: PCP Internal Medicine; Visit Provider Nurse Practitioner Family
DX: G43.009 Migraine without aura, not intractable, without status migrainosus (principal); G47.00 Insomnia, unspecified
CPT/HCPCS: 99214

== ENCOUNTER → 2024-03-08 10:12 | Outpatient (BNVA) | payer OTHER, SELFPAY | PROVIDERS: PCP Internal Medicine; Visit Provider Nurse Practitioner Family | DX: G43.109 Migraine with aura, not intractable, without status migrainosus (principal); G47.00 Insomnia, unspecified | CPT/HCPCS: 99212 ==